=== PATIENT | female | born 1940 | race Caucasian/White ===

== ENCOUNTER 2016-09-23 13:26 | Outpatient (CLI) ==
[2015-08-31 15:57] VITALS: BMI 24.1
--- NOTE | 2016-09-24 09:21 | MAMMO ---
EXAM: Bilateral digital screening mammogram History: Screening Comparison: Bilateral mammogram 09/15/2014 Findings: MLO and CC views of bilateral breasts demonstrate scattered fibroglandular breast parench yma. Stable benign bilateral breast nodules and bilateral breast calcifications. There are no deve loping masses and no suspicious microcalcifications. Impression: Benign stable mammogram. Recommend followup routine screening mammography in 1 year. BIRADS 2
== END 2016-09-23 13:27 | disposition home or self-care (01) ==
LOC: RAD 13:26
PROVIDERS: ATTEND Internal Medicine
DX: Z12.31 Encounter for screening mammogram for malignant neoplasm of breast (principal)

== ENCOUNTER 2016-11-11 08:29 | Day surgery (SDC) ==
[2015-08-31 15:57] VITALS: BMI 24.1
[2016-11-11] MEDS ORDERED: ALBUTEROL 0.083% NEB NEB STA (09:22)
[2016-11-11] MEDS ORDERED: LIDOCAINE 1% 20 ML MDV ID ONE (09:35)
[2016-11-11] MEDS ORDERED: VERSED ONE (11:14)
[2016-11-11] MEDS ORDERED: DIPRIVAN 20 ML VIAL IVP ONE (11:14)
[2016-11-11 12:43] VITALS: BP 147/72; TEMP 97.6
--- NOTE | 2016-11-12 11:52 | OP ---
INDICATIONS FOR PROCEDURE: 76-year-old female with history of adenomatous polyps with the last colonoscopy being three years ago presents for colonoscopy exam. She had a large adenomatous carpenting polyp surgically removed from her cecum in 2005. MEDICATIONS: SEE ANESTHESIA NOTES. PROCEDURE: COLONOSCOPY. REPORT: The risks, benefits, alternatives and limitations were discussed in detail with the patient. Informed consent was obtained. After adequate sedation was achieved, a digital rectal exam revealed good tone, no masses. The colonoscope was introduced into the rectum and advanced under direct visual guidance to the cecum. The cecum was identified by the appendiceal orifice and IC valve. I then slowly withdrew the scope in a circumferential manner examining the mucosa quite carefully. I looked on the proximal and distal side of folds and flexures as best as possible. I was able to retroflex the scope in the right colon and left colon to increase visualization. The colonic mucosa was unremarkable its entire length except for moderate small mouth diverticula scattered throughout the left colon. No other abnormalities were noted including on retroflex view of the anal canal. The prep was good. The withdrawal time was 8 minutes and 16 seconds. The patient tolerated the procedure well with stable vital signs and pulse oximetry throughout. IMPRESSION: 1. DIVERTICULOSIS. RECOMMENDATIONS: 1. High fiber diet. 2. Office visit as needed. 3. Consider colon surveillance examination again in 5 years if she is clinically well; sooner if there are signs and symptoms to indicate otherwise. CC: DR. ISIS BROWNING
== END 2016-11-11 12:53 | disposition home or self-care (01) ==
LOC: SURG 08:29
PROVIDERS: ATTEND Internal Medicine Gastroenterology
DX: Z09 Encounter for follow-up examination after completed treatment for conditions other than malignant neoplasm (principal); Z86.010 Personal history of colon polyps; K57.30 Diverticulosis of large intestine without perforation or abscess without bleeding
CPT/HCPCS: 94640

== ENCOUNTER 2017-09-23 10:00 | Outpatient (CLI) ==
[2015-08-31 15:57] VITALS: BMI 24.1
--- NOTE | 2017-09-23 11:44 | MAMMO ---
EXAM: Bilateral digital screening mammogram (2-D and 3-D) History: Screening Comparison: Bilateral mammogram 09/23/2016 Findings: MLO and CC views of bilateral breasts demonstrate scattered fibroglandular breast parenchy ma. CAD was reviewed by the radiologist. Tomosynthesis was performed. Stable benign bilateral izabella st calcifications. There are no dominant masses, no suspicious microcalcifications and no architectu ral distortions. Impression: Benign stable mammogram. Recommend followup routine screening mammography in 1 year. BIRADS 2
== END 2017-09-23 10:01 | disposition home or self-care (01) ==
LOC: RAD 10:00
PROVIDERS: ATTEND Internal Medicine
DX: Z12.31 Encounter for screening mammogram for malignant neoplasm of breast (principal)
CPT/HCPCS: 77067

== ENCOUNTER 2017-10-02 07:40 | Outpatient (CLI) ==
[2015-08-31 15:57] VITALS: BMI 24.1
--- NOTE | 2017-10-02 09:19 | CT ---
EXAM: CT of the chest with contrast History: Cough, history smoking Comparison: Chest radiograph 08/31/2015 Technique: Multiplanar CT images through the thorax were obtained following administration of IV con trast Findings: Heart size is within normal limits. Great vessels are unremarkable. No pericardial effusi on. No pathologically enlarged thoracic lymph nodes. No consolidation. No pleural fluid and no pne umothorax. Mild emphysema. Faint 1.1 cm ground-glass nodule within the superior segment of the left lower lobe. Calcified granulomas are seen within the thorax. Within the visualized upper abdomen, status post cholecystectomy. Small simple left renal cyst. 1 c m benign left adrenal nodule. No acute osseous abnormalities. Impression: 1. Ground-glass nodule within the left lower lobe. Recommend follow-up chest CT in 6 months. 2. Mild emphysema.
== END 2017-10-02 07:41 | disposition home or self-care (01) ==
LOC: RAD 07:40
PROVIDERS: ATTEND Internal Medicine
DX: R05 Cough (principal); F17.210 Nicotine dependence, cigarettes, uncomplicated

== ENCOUNTER 2017-10-10 16:52 | Emergency (ER) ==
[2017-10-10 17:01] VITALS: BP 153/70; TEMP 97.4; BMI 22.6
[2017-10-10] MEDS ORDERED: NORCO 7.5-325 MG/15 ML PO STA (17:30)
[2017-10-10] MEDS ORDERED: BOOSTRIX IM ONE (17:30)
--- NOTE | 2017-10-10 17:33 | ED.PDOC ---
General ED Provider: Dr. REYMUNDO ABBSAI Chief Complaint: Foot Pain/Injury Stated Complaint: fell at home on the [place] injuring right distal foot. Has severe pain . Happned 30 min ago. Did not take home percocets. Time Seen by Physician: 17:31 Mode of Arrival: Wheelchair Information Source: Patient Primary Care Provider: NIALL MARINELLI Nursing and Triage Documentation Reviewed and Agree: Yes Does patient meet sepsis criteria?: No System Inflammatory Response Syndrome: Not Applicable Sepsis Protocol: For patient's 13 years and over: Temp is 96.8 and below OR 101 and greater Pulse >90 BPM Resp >20/minute Acutely Altered Mental Status Are patient's symptoms suggestive of a new infection, such as: -Pneumonia -Skin, Soft Tissue -Endocarditis -UTI -Bone, Joint Infection -Implantable Device -Acute Abdominal Infection -Wound Infection -Meningitis -Blood Stream Catheter Infection -Unknown Musculoskeletal Complaint Exam - Ankle/Foot Complaint/Exam Location of Injury: Reports: Right, Foot Mechanism of Injury: Reports: Trauma Onset/Duration: 30 min ago Symptoms Are: Reports: Still present Onset of Pain: Reports: Immediate Initial Severity: Severe Current Severity: Severe Location: Reports: Discrete (distal foot ) Character: Reports: Aching, Throbbing Alleviating: Reports: None Aggravating: Reports: Movement, Weight bearing, Prolonged standing Able to Bear Weight: Yes Associated Signs and Symptoms: Reports: Swelling (minimal ), Bruising Related History: Denies: Similar episode, Occupational injury Gout Risk Factors: Reports: None Related Surgical History: Reports: None Lower Extremity Findings: Present: Tenderness (distal foot ) Achilles Tendon Abnormality: No Tenderness: Present: Midfoot Differential Diagnosis: Closed Fracture, Sprain, Strain Review of Systems - Review Of Systems Constitutional: Reports: No symptoms Musculoskeletal: Reports: Joint pain All Other Systems: Reviewed and Negative Past Medical History - Past Medical History Previously Healthy: No Endocrine: Reports: None Cardiovascular: Reports: Hypertension Respiratory: Reports: None Hematological: Reports: None Gastrointestinal: Reports: GERD Genitourinary: Reports: None Neuro/Psych: Reports: Seizure, Anxiety Musculoskeletal: Reports: None Cancer: Reports: None Last Menstrual Period: NA - Surgical History General Surgical History: Reports: Hysterectomy, Cholecystectomy, Orthopedic ( Right knee), Other (Polyp removal from colon, cataract, eyelids) - Family History Family History: Reports: Unknown - Social History Smoking Status: Current every day smoker, Heavy tobacco smoker Hx Substance Use: No Alcohol Screening: None - Immunizations Tetanus Shot up to Date: No Physical Exam - Physical Exam Appearance: Well-appearing Pain Distress: Severe Respiratory: Airway patent, Breath sounds clear, Breath sounds equal, Respirations nonlabored Cardiovascular: RRR Musculoskeletal: Limited ROM Neurological: Alert, Oriented Psychiatric: Anxious Interpretation - Radiology Interpretation Radiology Interpretation By: Radiologist Radiology Results: Positive Exam Interpreted: Other (First Proximal Phalangeal fracture) Critical Care Note - Critical Care Note Total Time (mins): 0 Course - Course Orders, Labs, Meds: Orders Category Date Time Status Diphth,Pertuss(Acell),Tet Vac [Boostrix] MEDS 10/10/17 17:30 Discontinued 0.5 ml IM .ONCE ONE Hydrocodone Bit/Acetaminophen [[place] 7.5-325] MEDS 10/10/17 17:34 Discontinued 1 tab PO ONCE STA FOOT, RIGHT 3 VIEWS Stat RADS 10/10/17 17:29 Completed Medications Discontinued Medications Generic Name Dose Route Start Last Admin Trade Name Freq PRN Reason Stop Dose Admin Hydrocodone Bitart/Acetaminophen 1 tab 10/10/17 17:34 10/10/17 18:38 [place] 7.5-325 PO 10/10/17 17:35 1 tab ONCE STA Administration Diphtheria/Pertussis/Tetanus Vacc 0.5 ml 10/10/17 17:30 10/10/17 18:39 Boostrix IM 10/10/17 17:31 0.5 ml .ONCE ONE Administration Vital Signs: Temp Pulse Resp BP Pulse Ox 10/10/17 16:54 97.4 F L 71 16 153/70 H 96 Departure - Departure Time of Disposition: 19:42 Disposition: HOME SELF-CARE Discharge Problem: Fracture of phalanx of great toe Qualifiers: Encounter type: initial encounter Fracture type: closed Phalanx: proximal Fracture alignment: displaced Laterality: right Qualified Code(s): S92.411A - Displaced fracture of proximal phalanx of right great toe, initial encounter for closed fracture Instructions: Toe Fracture (ED), Tdap and Td Vaccines for Adults (ED) Condition: Stable Pt referred to PMD for follow-up: Yes IPMP verified?: No Additional Instructions: Continue home medications Follow up with PCP in 3 days for Orthopedic referral. Allergies/Adverse Reactions: Allergies ciprofloxacin [From Cipro] Adverse Reaction (Verified 08/31/15 15:58) imipramine [From Tofranil] Adverse Reaction (Verified 08/31/15 15:58) latex Adverse Reaction (Verified 08/31/15 15:58) Penicillins Adverse Reaction (Verified 08/31/15 15:58) phenytoin [From Dilantin] Adverse Reaction (Verified 08/31/15 15:58) tramadol Adverse Reaction (Verified 10/10/17 17:03) BANDAIDES Adverse Reaction (Uncoded 09/14/13 13:14) Home Medications: Ambulatory Orders Alprazolam [Xanax] 1 tab PO BID PRN 09/14/13 Amlodipine Besylate 1 tab PO BID 09/14/13 Esomeprazole Magnesium [Nexium] 1 tab PO BID 09/14/13 Phenobarbital 1 tab PO DAILY 09/14/13 Ropinirole HCl [Requip] 1 tab PO BEDTIME 09/14/13 Estrogens, Conjugated [Premarin] 0.625 mg PO BEDTIME 08/03/15 Albuterol Sulfate [Proair Hfa] 2 puff IH Q6H PRN 08/31/15 Diclofenac Sodium 75 mg PO DAILY 08/31/15 Losartan/Hydrochlorothiazide [Losartan-Hctz 100-25 mg Tab] 1 each PO DAILY 08/30 Oxycodone HCl/Acetaminophen [Percocet 7.5-325 mg Tablet] 1 each PO BID 08/31/15 Ipratropium/Albuterol Sulfate [Combivent Respimat Inhal [place]] 2 inh IH BID 04/29 Disposition Discussed With: Patient, Family
[2017-10-10] MEDS ORDERED: NORCO 7.5-325 PO STA (17:34)
--- NOTE | 2017-10-10 19:36 | DI ---
EXAM: Right foot three views HISTORY: Severe distal foot pain after trauma. FINDINGS: Bones appear demineralized. There is a mildly comminuted fracture involving the first pro ximal phalanx, distal aspect with intra-articular extension. The fractures are minimally displaced. Joints remain intact. No other acute fractures are seen. IMPRESSION: First proximal phalangeal fracture.
== END 2017-10-10 19:55 | disposition home or self-care (01) ==
LOC: ED 16:52
DX: S92.411A Displaced fracture of proximal phalanx of right great toe, initial encounter for closed fracture (principal); W19.XXXA Unspecified fall, initial encounter; F17.210 Nicotine dependence, cigarettes, uncomplicated
CPT/HCPCS: 90471; 90715; 99283

== ENCOUNTER 2017-11-16 22:16 | Emergency (ER) ==
[2017-11-16 22:16] VITALS: BMI 22.6
[2017-11-16 22:30] VITALS: BP 127/66; TEMP 96.6
[2017-11-16] MEDS ORDERED: SODIUM CHLORIDE 500 ML IV STA (23:01)
--- NOTE | 2017-11-16 23:06 | ED.PDOC ---
General ED Provider: Dr. AYO ELKINS Chief Complaint: Headache Stated Complaint: Came for the headache, she was coughing a lot on Thursday, eversince the headache got worse. not beean eating much, ALOS BEEN HURTING LEFT ARM PAIN SHOULDER PAIN, Time Seen by Physician: 22:20 Mode of Arrival: Walk-In Information Source: Patient Primary Care Provider: NIALL MARINELLI Nursing and Triage Documentation Reviewed and Agree: Yes Does patient meet sepsis criteria?: No If yes, has appropriate treatment been initiated?: No System Inflammatory Response Syndrome: Not Applicable Sepsis Protocol: For patient's 13 years and over: Temp is 96.8 and below OR 101 and greater Pulse >90 BPM Resp >20/minute Acutely Altered Mental Status Are patient's symptoms suggestive of a new infection, such as: -Pneumonia -Skin, Soft Tissue -Endocarditis -UTI -Bone, Joint Infection -Implantable Device -Acute Abdominal Infection -Wound Infection -Meningitis -Blood Stream Catheter Infection -Unknown Neurological Complaint Exam - Headache Complaint/Exam Onset: Gradual Symptoms Are: Still present Timing: Constant Worst Headache Ever: No Initial Severity: Moderate Current Severity: Moderate Location: Frontal Character: Reports: Dull, Throbbing Aggravating: Reports: None Alleviating: Reports: None Associated Signs and Symptoms: Reports: Nausea, Sinus pressure. Denies: Dizziness, Seizure, Vomiting, Fever, Neck pain, Neck stiffness, Decreased LOC, Visual changes Related History: Reports: Similar episode Related Surgical History: Reports: None SAH Risk Factors: Reports: Smoking, Hypertension Meningitis Risk Factors: Reports: None SDH Risk Factors: Reports: None Temporal Arteritis Risk Factors: Reports: None Normal Head CT Within Last 12 Months: No Sinus Tenderness: Present: None TMJ Tenderness: Present: None Meningeal Signs Positive: No Pain on Passive Flexion-Positive Kernig's: No ROM Limited In: No Limitiations Focal Weakness: Present: None Focal Sensory Loss: Present: None Gait: Normal Nystagmus Present: No Gag Reflex Present: Yes [id number]: Normal Findings Romberg Test Positive: No Babinski Sign: Negative Right, Negative Left Differential Diagnoses: Subdural Hematoma, Sinus Headache, Tension Headache Review of Systems - Review Of Systems Constitutional: Reports: Malaise, Weakness Eyes: Reports: No symptoms Ears, Nose, Mouth, Throat: Reports: No symptoms Respiratory: Reports: Cough Cardiac: Reports: No symptoms GI: Reports: No symptoms : Reports: No symptoms Musculoskeletal: Reports: Neck pain Skin: Reports: No symptoms Neurological: Reports: Headache Endocrine: Reports: No symptoms Hematologic/Lymphatic: Reports: No symptoms All Other Systems: Reviewed and Negative Past Medical History - Past Medical History Previously Healthy: No Endocrine: Reports: None Cardiovascular: Reports: Hypertension Respiratory: Reports: COPD Hematological: Reports: None Gastrointestinal: Reports: GERD Genitourinary: Reports: None Neuro/Psych: Reports: Seizure, Anxiety Musculoskeletal: Reports: None Cancer: Reports: None Last Menstrual Period: PT HAS HAD A HYSTERCTOMY - Surgical History General Surgical History: Reports: Hysterectomy, Cholecystectomy, Orthopedic ( Right knee), Other (Polyp removal from colon, cataract, eyelids) - Family History Family History: Reports: Unknown - Social History Smoking Status: Current every day smoker, Heavy tobacco smoker Smoking Cessation Counseling Time: > 10 min Hx Substance Use: No Alcohol Screening: None - Immunizations Tetanus Shot up to Date: Yes Physical Exam - Physical Exam Appearance: Ill-appearing, Thin Ill-appearing: Mild Eyes: EOMI, Conjunctiva clear ENT: Ears normal, Nose normal, Oropharynx normal Respiratory: Airway patent, Breath sounds equal, Breath sounds diminished, Respirations nonlabored, Crackles Cardiovascular: RRR, Pulses normal, No rub, No murmur GI/: Soft, Nontender, No masses, Bowel sounds normal, No Organomegaly Musculoskeletal: Normal strength, ROM intact, No edema, No calf tenderness Skin: Warm, Dry, Normal color Neurological: Sensation intact, Motor intact, Reflexes intact, Cranial nerves intact, Alert, Oriented Psychiatric: Affect appropriate, Mood appropriate Interpretation - Radiology Interpretation Radiology Interpretation By: Radiologist Radiology Results: Positive Exam Interpreted: CT Scan - EKG Interpretation Time of EKG #1: 23:05 Rate: Normal Rhythm: Sinus Ectopy: None ST Segment: Other (T WAVE INVERTION) Physician Notification - Case Discussed Time of Notification: : (dR Parra) Time of Notification: 01:09 (Dr Molina) Critical Care Note - Critical Care Note Total Time (mins): 30 Course - Course Hematology/Chemistry: 11/16/17 23:25 11/16/17 23:25 Orders, Labs, Meds: Lab Review 11/16/17 11/16/17 11/16/17 23:25 23:25 23:25 WBC 19.65 H RBC 4.02 L Hgb 13.3 Hct 37.0 MCV 92.0 MCH 33.1 H MCHC 35.9 H RDW Coeff of [place] 13.1 Plt Count 236 Immature Gran % (Auto) 0.3 Neut % (Auto) 33.2 Lymph % (Auto) 12.8 [place] % (Auto) 4.1 Eos % (Auto) 49.3 H Baso % (Auto) 0.3 Immature Gran # (Auto) 0.1 Neut # (Auto) 6.5 Lymph # (Auto) 2.5 [place] # (Auto) 0.8 Eos # (Auto) 9.7 H Baso # (Auto) 0.1 Sodium 132 L Potassium 3.3 L Chloride 96 L Carbon Dioxide 27 Anion Gap 12.3 BUN 9 Creatinine 0.92 Estimated GFR (MDRD) 59.00 BUN/Creatinine Ratio 9.78 Glucose 107 Calcium 9.1 Total Bilirubin 0.3 AST 17 ALT 13 Alkaline Phosphatase 125 Total Creatine Kinase 123 CK-MB (CK-2) 7.4 H* CK-MB (CK-2) % 6.95690 Troponin I 1.2540 H* B-Natriuretic Peptide 159 H Total Protein 6.2 Albumin 3.1 L Globulin 3.1 Albumin/Globulin Ratio 1.00 Orders Category Date Time Status ABG DRAW REQUEST Stat CARDIO 11/16/17 23:42 Ordered ABG DRAW REQUEST Stat CARDIO 11/16/17 23:42 Ordered ABG DRAW REQUEST Stat CARDIO 11/17/17 01:07 Ordered EKG-(ED ONLY) Stat CARDIO 11/16/17 23:01 Ordered EKG-(ED ONLY) Stat CARDIO 11/17/17 00:38 Ordered ED IV/MEDIPORT/POWERPORT .ONCE EMERGENCY 11/16/17 23:01 Active ABG Stat LAB 11/17/17 01:07 Received B-TYPE NATRIURETIC PEPTIDE Stat LAB 11/16/17 23:25 Completed CBC W/ AUTO DIFF Stat LAB 11/16/17 23:25 Completed COMPREHENSIVE METABOLIC PANEL Stat LAB 11/16/17 23:25 Completed CREATINE KINASE Stat LAB 11/16/17 23:25 Completed TROPONIN I Stat LAB 11/16/17 23:25 Completed UA [URINALYSIS C & S IF INDICATED] Stat LAB 11/17/17 00:47 Uncollected 0.9 % Sodium Chloride [Saline Flush] MEDS 11/16/17 23:01 Ordered 1 syr IVF PRN PRN Aspirin [Aspirin Chewable] MEDS 11/17/17 00:31 Discontinued 324 mg PO ONCE STA Morphine Sulfate [Morphine 2 mg/ml Syringe] MEDS 11/17/17 00:31 Discontinued 2 mg IVP ONCE STA Ondansetron HCl/Pf [Zofran 4 mg/2 ml] MEDS 11/17/17 00:31 Discontinued 4 mg IVP ONCE STA Sodium Chloride 0.9% [Sodium Chloride] 500 ml MEDS 11/16/17 23:01 Active IV 100 mls/hr CT CHEST W/O CONTRAST Stat RADS 11/16/17 23:[address] HEAD W/O CONTRAST Stat RADS 11/16/17 23:02 Completed Medications Generic Name Dose Route Start Last Admin Trade Name Freq PRN Reason Stop Dose Admin Sodium Chloride 500 mls @ 100 mls/hr 11/16/17 23:01 11/17/17 00:54 Sodium Chloride IV 11/17/17 04:00 100 mls/hr .Q5H STA Administration Sodium Chloride 1 syr 11/16/17 23:01 Saline Flush IVF PRN PRN To flush IV Discontinued Medications Generic Name Dose Route Start Last Admin Trade Name Freq PRN Reason Stop Dose Admin Aspirin 324 mg 11/17/17 00:31 11/17/17 00:49 Aspirin Chewable PO 11/17/17 00:32 324 mg ONCE STA Administration Morphine Sulfate 2 mg 11/17/17 00:31 11/17/17 00:49 Morphine 2 Mg/Ml Syringe IVP 11/17/17 00:32 2 mg ONCE STA Administration Ondansetron HCl 4 mg 11/17/17 00:31 11/17/17 00:53 Zofran 4 Mg/2 Ml IVP 11/17/17 00:32 4 mg ONCE STA Administration Vital Signs: Temp Pulse Resp BP Pulse Ox 11/16/17 22:16 96.6 F L 86 20 127/66 91 L Departure - Departure Time of Disposition: 00:33 Disposition: HOME SELF-CARE Discharge Problem: Elevated troponin, Angina at rest Instructions: Angina (DC) Condition: Stable Pt referred to PMD for follow-up: No IPMP verified?: No Allergies/Adverse Reactions: Allergies ciprofloxacin [From Cipro] Adverse Reaction (Verified 11/16/17 22:31) imipramine [From Tofranil] Adverse Reaction (Verified 11/16/17 22:31) latex Adverse Reaction (Verified 11/16/17 22:31) Penicillins Adverse Reaction (Verified 11/16/17 22:31) phenytoin [From Dilantin] Adverse Reaction (Verified 11/16/17 22:31) tramadol Adverse Reaction (Verified 11/16/17 22:31) BANDAIDES Adverse Reaction (Uncoded 11/16/17 22:31) Home Medications: Ambulatory Orders Amlodipine Besylate 1 tab PO BID 09/14/13 Esomeprazole Magnesium [Nexium] 1 tab PO BID 09/14/13 Ropinirole HCl [Requip] 1 tab PO BEDTIME 09/14/13 Estrogens, Conjugated [Premarin] 0.625 mg PO BEDTIME 08/03/15 Albuterol Sulfate [Proair Hfa] 2 puff IH Q6H PRN 08/31/15 Diclofenac Sodium 75 mg PO DAILY 08/31/15 Losartan/Hydrochlorothiazide [Losartan-Hctz 100-25 mg Tab] 1 each PO DAILY 08/30 Oxycodone HCl/Acetaminophen [Percocet 7.5-325 mg Tablet] 1 each PO BID 08/31/15 Ipratropium/Albuterol Sulfate [Combivent Respimat Inhal [place]] 2 inh IH BID 04/29 Alprazolam [Xanax] 2 tab PO BEDTIME 11/16/17 Phenobarbital 100 mg PO BEDTIME 11/16/17 Transfer Form Completed: Yes Disposition Discussed With: Patient, Family
--- NOTE | 2017-11-16 23:32 | CT ---
EXAM: CT scan brain without contrast HISTORY: Headache COMPARISON: CT scan brain 08/31/2015 FINDINGS: Contiguous axial images obtained from the skull base to the convexities without contrast u tilizing 5-mm collimation. Sagittal and coronal reconstructions were imaged and reviewed. The ventri cles and CSF spaces are prominent compatible with age appropriate atrophy. There is mild periventric ular hypodensity noted compatible with chronic microvascular disease. Atherosclerotic changes are se en involving the left vertebral and bilateral cavernous internal carotid arteries. Visualized parana ridge sinuses and mastoid air cells are clear. IMPRESSION: No acute intracranial findings
--- NOTE | 2017-11-16 23:38 | CT ---
EXAM: CT chest without intravenous contrast 11/16/2017. Sagittal and coronal reformatted images obt ained HISTORY: Cough COMPARISON: 10/02/2017 FINDINGS: The heart size appears within normal limits. There is no pericardial effusion. Emphysematous changes. Diffuse bronchial wall thickening. Correlate for bronchitis/bronchiolitis. Ground-glass density within the medial aspect of the left lower lobe can be seen on image 31. This a stefani measures approximate 11 mm in diameter. This appears similar to the prior study. Follow-up CT c hest could be obtained approximately six - 12 months. Limited views of the upper abdomen shows surgical changes of cholecystectomy. Benign left adrenal jj noma. Chronic degenerative endplate changes of the thoracic spine appear similar to the prior examination. IMPRESSION: 1. Emphysema. 2. Stable ground-glass density within the left lower lobe. Follow-up CT chest could be obtained in approximately six - 12 months. 3. Diffuse bronchial wall thickening. Correlate for bronchitis/bronchiolitis. 4. Status post cholecystectomy. 5. Benign left adrenal adenoma. 6. Chronic degenerative endplate changes of the thoracic spine appears similar to the prior examinat ion.
[2017-11-17] MEDS ORDERED: MORPHINE 2 MG/ML SYRINGE IVP STA (00:31)
[2017-11-17] MEDS ORDERED: ZOFRAN 4 MG/2 ML IVP STA (00:31)
[2017-11-17] MEDS ORDERED: ASPIRIN CHEWABLE PO STA (00:31)
== END 2017-11-17 01:40 | disposition home or self-care (01) ==
LOC: ED 22:16
DX: R51 Headache (principal); M79.602 Pain in left arm; M25.512 Pain in left shoulder; R11.0 Nausea; R53.1 Weakness; I10 Essential (primary) hypertension; J44.9 Chronic obstructive pulmonary disease, unspecified; K21.9 Gastro-esophageal reflux disease without esophagitis; F41.9 Anxiety disorder, unspecified
CPT/HCPCS: 36415; 80053; 82550; 82553; 82803; 82962; 83880; 84484; 85025; 93005; 93010; 96361; 96374; 96375; 99285

== ENCOUNTER 2017-12-25 14:53 | Inpatient (IN) ==
--- NOTE | 2017-12-25 16:09 | DI ---
EXAM: Single AP view of the chest HISTORY: Chest pain. COMPARISON: Chest x-ray 08/31/2015 FINDINGS: Cardiomediastinal silhouette is unremarkable. There is consolidation in the medial left lo wer lobe. The lungs are otherwise clear. Lungs are hyperinflated with no pneumothorax. The osseous structures demonstrate degenerative disease. IMPRESSION: Consolidation in the medial left lower lobe may represent atelectasis or pneumonia. Hyperinflation consistent with emphysema.
--- NOTE | 2017-12-25 16:50 | ED.PDOC ---
General ED Provider: Dr. ROD BARRERA Chief Complaint: Extremity Pain/Injury Stated Complaint: LEFT ARM TINGLING, WEAKNESS WHICH IS PROGRESSIVE OVER MONTHS SLIGHLY WORSE Time Seen by Physician: 15:00 (SEEN WITH NKECHI'S NURSE ) Mode of Arrival: Wheelchair Information Source: Patient, Family Exam Limitations: No limitations Primary Care Provider: NIALL MARINELLI Nursing and Triage Documentation Reviewed and Agree: Yes Does patient meet sepsis criteria?: No System Inflammatory Response Syndrome: Not Applicable Sepsis Protocol: For patient's 13 years and over: Temp is 96.8 and below OR 101 and greater Pulse >90 BPM Resp >20/minute Acutely Altered Mental Status Are patient's symptoms suggestive of a new infection, such as: -Pneumonia -Skin, Soft Tissue -Endocarditis -UTI -Bone, Joint Infection -Implantable Device -Acute Abdominal Infection -Wound Infection -Meningitis -Blood Stream Catheter Infection -Unknown Musculoskeletal Complaint Exam - Upper Extremity Complaint/Exam Location of Pain: Reports: Left, Shoulder, Arm, Forearm Mechanism of Injury: Reports: No known trauma Onset/Duration: CHRONIC WORSE X 1 WEEK DROPPING THINGS MORE FREQUENTLY Symptoms Are: Still present Timing: Constant Episodes Lasting: Weeks Initial Severity: Moderate Current Severity: Mild Location: Reports: Discrete Character: Reports: Aching Aggravating: Reports: Movement Alleviating: Reports: Rest Related History: Reports: Similar episode Non-Orthopedic Risk Factors: Reports: None DVT Risk Factors: Reports: None Septic Arthritis Risk Factors: Reports: Extremes of age Upper Extremity Findings: Absent: Swelling, Ecchymosis, Abnormal contour, Rotation, Ligamentous instability, Laceration, Erythema, Warmth Differential Diagnoses: Arthritis (RADICULOPATHY), Other (ANGINA) Review of Systems - Review Of Systems Constitutional: Reports: No symptoms Eyes: Reports: No symptoms Ears, Nose, Mouth, Throat: Reports: No symptoms Respiratory: Reports: No symptoms Cardiac: Reports: No symptoms GI: Reports: No symptoms : Reports: No symptoms Musculoskeletal: Reports: Other (ARM PAIN AND WEAKNESS LEFT SIDED ) Skin: Reports: No symptoms Neurological: Reports: No symptoms Endocrine: Reports: No symptoms Hematologic/Lymphatic: Reports: No symptoms All Other Systems: Reviewed and Negative Past Medical History - Past Medical History Previously Healthy: No Endocrine: Reports: None Cardiovascular: Reports: Hypertension Respiratory: Reports: COPD Hematological: Reports: None Gastrointestinal: Reports: GERD Genitourinary: Reports: None Neuro/Psych: Reports: Seizure, Anxiety Musculoskeletal: Reports: None Cancer: Reports: None Last Menstrual Period: NONE - Surgical History General Surgical History: Reports: Hysterectomy, Cholecystectomy, Orthopedic ( Right knee), Other (Polyp removal from colon, cataract, eyelids) - Family History Family History: Reports: Unknown - Social History Smoking Status: Current every day smoker, Heavy tobacco smoker Hx Substance Use: No Alcohol Screening: None Physical Exam - Physical Exam Appearance: Well-appearing, No pain distress, Well-nourished Eyes: YASH, EOMI, Conjunctiva clear ENT: Ears normal, Nose normal, Oropharynx normal Respiratory: Airway patent, Breath sounds clear, Breath sounds equal, Respirations nonlabored Cardiovascular: RRR, Pulses normal, No rub, No murmur GI/: Soft, Nontender, No masses, Bowel sounds normal, No Organomegaly Musculoskeletal: Normal strength, ROM intact, No edema, No calf tenderness Skin: Warm, Dry, Normal color Neurological: Sensation intact, Motor intact, Reflexes intact, Cranial nerves intact, Alert, Oriented Psychiatric: Affect appropriate, Mood appropriate Interpretation - Radiology Interpretation Radiology Interpretation By: Radiologist Radiology Results: Positive (CONSOLIDATION RML POSSIBLE ATLELECTASIS) - City Plant Supervisor Rate: Normal Rhythm: Sinus - EKG Interpretation Rate: Normal Rhythm: Sinus (RBBB) Re-Evaluation - Re-Evaluation Time of Re-Evaluation: 16:00 (NEGATIVE CHEST PAIN) Status: Unchanged Vital Signs Stable: Yes Pain Level: 0 Appearance: NAD Lungs: Clear Skin: Warm and Dry Neuro: Alert and Oriented X3 CV: RRR - Re-Evaluation Time of Re-Evaluation: 16:51 Status: Unchanged Vital Signs Stable: Yes Appearance: NAD Skin: Warm and Dry Neuro: Alert and Oriented X3 CV: RRR (NO CHEST PAIN) Physician Notification - Case Discussed Physician Notified: PMD Time of Notification: 16:51 (ADMITT) Admit To: Inpatient Critical Care Note - Critical Care Note Total Time (mins): 0 Course - Course Hematology/Chemistry: 12/25/17 15:15 12/25/17 15:15 Orders, Labs, Meds: Lab Review 12/25/17 12/25/17 15:15 15:15 WBC 9.68 RBC 3.82 L Hgb 12.8 Hct 35.6 L MCV 93.2 MCH 33.5 H MCHC 36.0 H RDW Coeff of Dayana 13.0 Plt Count 274 Immature Gran % (Auto) 0.3 Neut % (Auto) 69.0 Lymph % (Auto) 13.0 [place] % (Auto) 4.3 Eos % (Auto) 13.2 H Baso % (Auto) 0.2 Immature Gran # (Auto) 0.0 Neut # (Auto) 6.7 Lymph # (Auto) 1.3 [place] # (Auto) 0.4 Eos # (Auto) 1.3 H Baso # (Auto) 0.0 Sodium 129.7 L Potassium 3.89 Chloride 95.2 L Carbon Dioxide 26.0 Anion Gap 12.39 BUN 21.7 H Creatinine 1.12 Estimated GFR (MDRD) 47.00 BUN/Creatinine Ratio 19.37 Glucose 127.8 H Calcium 9.40 Total Bilirubin 0.26 AST 30.1 ALT 16.4 Alkaline Phosphatase 139.8 Total Creatine Kinase 57.8 Troponin I 1.760 H* Total Protein 7.26 Albumin 4.07 Globulin 3.19 Albumin/Globulin Ratio 1.27 Orders Category Date Time Status EKG-(ED ONLY) Stat CARDIO 12/25/17 15:15 Completed EKG-(ED ONLY) Stat CARDIO 12/25/17 16:22 Ordered CBC W/ AUTO DIFF Stat LAB 12/25/17 15:15 Completed COMPREHENSIVE METABOLIC PANEL Stat LAB 12/25/17 15:15 Completed CREATINE KINASE Stat LAB 12/25/17 15:15 Completed TROPONIN I Stat LAB 12/25/17 15:15 Completed CHEST, 1V AP ONLY Stat RADS 12/25/17 15:25 Completed Vital Signs: Temp Pulse Resp BP Pulse Ox 12/25/17 14:57 98.3 F 89 20 150/71 H 87 L Departure - Departure Time of Disposition: 16:52 Disposition: ADMITTED INPATIENT Discharge Problem: Stable angina pectoris Arm pain, chronic Qualifiers: Laterality: right Qualified Code(s): M79.601 - Pain in right arm; G89.29 - Other chronic pain Instructions: Angina (ED) Condition: Good Pt referred to PMD for follow-up: Yes IPMP verified?: No Allergies/Adverse Reactions: Allergies ciprofloxacin [From Cipro] Adverse Reaction (Verified 12/25/17 15:02) imipramine [From Tofranil] Adverse Reaction (Verified 12/25/17 15:02) latex Adverse Reaction (Verified 12/25/17 15:02) Penicillins Adverse Reaction (Verified 12/25/17 15:02) phenytoin [From Dilantin] Adverse Reaction (Verified 12/25/17 15:02) tramadol Adverse Reaction (Verified 12/25/17 15:02) BANDAIDES Adverse Reaction (Uncoded 11/16/17 22:31) Home Medications: Ambulatory Orders Amlodipine Besylate 1 tab PO BID 09/14/13 Esomeprazole Magnesium [Nexium] 1 tab PO BID 09/14/13 Ropinirole HCl [Requip] 1 tab PO BEDTIME 09/14/13 Estrogens, Conjugated [Premarin] 0.625 mg PO BEDTIME 08/03/15 Albuterol Sulfate [Proair Hfa] 2 puff IH Q6H PRN 08/31/15 Diclofenac Sodium 75 mg PO DAILY 08/31/15 Losartan/Hydrochlorothiazide [Losartan-Hctz 100-25 mg Tab] 1 each PO DAILY 08/30 Oxycodone HCl/Acetaminophen [Percocet 7.5-325 mg Tablet] 1 each PO BID 08/31/15 Alprazolam [Xanax] 2 tab PO BEDTIME 11/16/17 Phenobarbital 100 mg PO BEDTIME 11/16/17 Disposition Discussed With: Patient, Family
[2017-12-25] MEDS ORDERED: ROCEPHIN 1 GM in SODIUM CHLORIDE 50 ML IV STA (17:08)
[2017-12-25] MEDS ORDERED: ROCEPHIN ONE (17:11)
[2017-12-25] MEDS: ROCEPHIN 1 GM in SODIUM CHLORIDE 50 ML IV SCH (17:51)
[2017-12-25] MEDS: SODIUM CHLORIDE 1,000 ML IV SCH (18:34)
[2017-12-25] MEDS: DUONEB NEB SCH ×2 (18:37→23:50)
[2017-12-25 18:57] VITALS: BMI 22.0
--- NOTE | 2017-12-25 18:58 | CT ---
EXAM: CT of the head with contrast. HISTORY: Numbness. COMPARISON: 11/16/[address] TECHNIQUE: Contiguous axial images at 5 mm intervals were obtained from the base of the skull to the vertex of the calvarium. The study was performed after IV contrast. No precontrast images were obt ained. FINDINGS: Evaluation and exclusion of subarachnoid blood is limited due to the presence of contrast. The CSF containing spaces are normal in size and position. There are no extraaxial fluid collections . There is no evidence of an acute intracranial hemorrhage. There are no masses or mass effect. No areas of abnormal density are identified. Romero-white differentiation is normal. The osseous and extracranial soft tissues are normal. IMPRESSION: 1. No acute intracranial abnormality. 2. Limited study for evaluation of intracranial hemorrhage due to the presence of IV contrast.
--- NOTE | 2017-12-25 19:04 | CT ---
EXAM: CT cervical spine without contrast HISTORY: Neck pain and numbness COMPARISON: None TECHNIQUE: CT cervical spine performed without intravenous contrast. Coronal and sagittal reformatt ed images obtained. FINDINGS: Vertebral bodies normal height. No fracture. No subluxation. Multilevel marginal osteophy te formation. Multilevel intervertebral disc space narrowing, severe at C6-C7. Multilevel facet and uncovertebral hypertrophy. Prevertebral soft tissues appear normal. C2-C3: No central canal or neural foraminal narrowing. C3-C4: Posterior disc osteophyte complex and facet arthrosis causing mild central canal and moderate left neural foraminal narrowing. C4-C5: No central canal or neural foraminal narrowing. C5-C6: Posterior disc osteophyte complex and facet arthrosis causing mild central canal, moderate rig ht and mild left neural foraminal narrowing. C6-C7: Posterior disc osteophyte complex and facet arthrosis causing mild to moderate central canal and moderate bilateral neural foraminal narrowing. C7-T1: No central canal or neural foraminal narrowing IMPRESSION: 1. No fracture or subluxation. 2. Chronic discogenic degenerative disease and facet arthrosis. Please see segmental analysis, noti ng central canal and neural foraminal narrowing.
[2017-12-25] MEDS ORDERED: ESOMEPRAZOLE MAGNESIUM PO SCH (21:00)
[2017-12-25] MEDS ORDERED: XANAX PO SCH (21:00)
[2017-12-25] MEDS ORDERED: PHENOBARBITAL 100 MG PO SCH (21:00)
[2017-12-25] MEDS ORDERED: NORVASC PO SCH ×2 (21:00)
[2017-12-25] MEDS ORDERED: PERCOCET 7.5-325 PO SCH (21:00)
[2017-12-25] MEDS ORDERED: XANAX ONE (21:15)
[2017-12-25] MEDS ORDERED: NORVASC ONE ×2 (21:15→21:17)
[2017-12-25] MEDS: REQUIP PO SCH (21:21)
[2017-12-25] MEDS ORDERED: PERCOCET 7.5-325 ONE (21:47)
[2017-12-25] MEDS: PERCOCET 7.5-325 PO SCH (21:51)
[2017-12-25] MEDS: PREMARIN PO SCH (22:58)
[2017-12-26] MEDS: DUONEB NEB SCH ×4 (05:10→23:44)
[2017-12-26] MEDS ORDERED: PERCOCET 7.5-325 ONE (05:19)
[2017-12-26] MEDS: PERCOCET 7.5-325 PO SCH ×3 (05:21→20:00)
[2017-12-26] MEDS ORDERED: DICLOFENAC SODIUM PO SCH (08:00)
[2017-12-26] MEDS ORDERED: PERCOCET 7.5-325 PO SCH ×2 (09:00→21:00)
[2017-12-26] MEDS ORDERED: NON-FORMULARY MEDICATION (Losartan/Hydrochlorothiazide [Losartan-Hctz 100-25 Mg Tab] 1 EAC PO SCH (09:00)
[2017-12-26] MEDS: SODIUM CHLORIDE 1,000 ML IV SCH ×2 (09:04→22:30)
[2017-12-26] MEDS: ROCEPHIN 1 GM in SODIUM CHLORIDE 50 ML IV SCH (09:18)
[2017-12-26] MEDS: PROTONIX PO SCH ×2 (09:19→16:09)
[2017-12-26] MEDS: HYZAAR 50-12.5 MG TAB PO SCH (09:19)
[2017-12-26] MEDS: NORVASC PO SCH ×2 (09:20→20:00)
[2017-12-26] MEDS ORDERED: DECADRON 4 MG/ML SDV IM STA (09:58)
[2017-12-26] MEDS: LEXAPRO PO SCH (10:13)
[2017-12-26] MEDS: LOVENOX SUBCUT SCH (10:13)
[2017-12-26] MEDS ORDERED: REQUIP PO STA (15:43)
[2017-12-26] MEDS: PREMARIN PO SCH (20:00)
[2017-12-26] MEDS: REQUIP PO SCH (20:00)
[2017-12-26] MEDS: PHENOBARBITAL 100 MG PO SCH (20:01)
[2017-12-26] MEDS: XANAX PO SCH (20:01)
[2017-12-27] MEDS: DUONEB NEB SCH ×4 (05:20→23:30)
[2017-12-27] MEDS: PROTONIX PO SCH ×2 (05:53→17:08)
[2017-12-27] MEDS: ROCEPHIN 1 GM in SODIUM CHLORIDE 50 ML IV SCH (08:46)
[2017-12-27] MEDS: LEXAPRO PO SCH (08:46)
[2017-12-27] MEDS: HYZAAR 50-12.5 MG TAB PO SCH (08:46)
[2017-12-27] MEDS: NORVASC PO SCH ×2 (08:47→20:40)
[2017-12-27] MEDS: PERCOCET 7.5-325 PO SCH ×2 (08:47→20:41)
[2017-12-27] MEDS: LOVENOX SUBCUT SCH (08:48)
[2017-12-27] MEDS ORDERED: DECADRON 4 MG/ML SDV IM ONE (09:00)
[2017-12-27] MEDS: SODIUM CHLORIDE 1,000 ML IV SCH (14:09)
[2017-12-27] MEDS: PREMARIN PO SCH (20:40)
[2017-12-27] MEDS: REQUIP PO SCH (20:40)
[2017-12-27] MEDS: PHENOBARBITAL 100 MG PO SCH (20:40)
[2017-12-27] MEDS: XANAX PO SCH (20:41)
[2017-12-28] MEDS: SODIUM CHLORIDE 1,000 ML IV SCH (04:10)
[2017-12-28] MEDS: DUONEB NEB SCH ×3 (04:30→17:58)
[2017-12-28] MEDS: PROTONIX PO SCH ×2 (05:48→16:57)
[2017-12-28] MEDS: LEXAPRO PO SCH (09:08)
[2017-12-28] MEDS: HYZAAR 50-12.5 MG TAB PO SCH (09:09)
[2017-12-28] MEDS: NORVASC PO SCH ×2 (09:09→20:48)
[2017-12-28] MEDS: PERCOCET 7.5-325 PO SCH ×2 (09:10→20:48)
[2017-12-28] MEDS: ROCEPHIN 1 GM in SODIUM CHLORIDE 50 ML IV SCH (09:12)
[2017-12-28] MEDS: LOVENOX SUBCUT SCH (09:14)
[2017-12-28] MEDS ORDERED: LEXAPRO PO ONE (09:30)
--- NOTE | 2017-12-28 09:31 | PCM.PROG ---
Attending Provider: ATTENDING PROVIDER: Dr. NIALL MARINELLI This patient is seen with Dulce Suarez, Nurse Practitioner. DATE OF SERVICE: 12/28/17 SUBJECTIVE: This 77 year old WHITE/ F was hospitalized 12/25/17. The patient is sitting on bed. She still needs assistance. She has been up and about, experiences leg weakness and short of breath. Will do PT consultation today. REVIEW OF SYSTEMS: CONSTITUTIONAL: Weakness. No night sweats. No malaise, lethargy. No fever or chills. HEENT: Eyes: No visual changes. No eye pain. No eye discharge. ENT: No runny nose. No epistaxis. No sinus pain. No odynophagia. No congestion. RESPIRATORY: No cough, no congestion. No hemoptysis. Shortness of breath. CARDIOVASCULAR: No angina symptoms. No CHF symptoms. No atypical chest pain for CAD. No palpitations. No orthopnea.. GASTROINTESTINAL: No abdominal pain. No nausea or vomiting. No diarrhea or constipation. No hematemesis. No hematochezia. GENITOURINARY: No urgency. No frequency. No dysuria. No hematuria. No obstructive symptoms. No discharge. No pain. No significant abnormal bleeding. MUSCULOSKELETAL: No musculoskeletal pain; no joint swelling. NEUROLOGICAL: Awake, alert, oriented to time, place and person. No headache. No neck pain. No syncope. No seizures. No dizziness. PSYCHIATRIC: Anxious. No depression. No suicidal thoughts. No homicidal thoughts. SKIN: No rash. No lesions. No wounds. ENDOCRINE: No unexplained weight loss. No weight gain. HEMATOLOGIC/LYMPHATIC: No anemia. No purpura. No petechiae. No prolonged or excessive bleeding. No palpable lymph nodes. PHYSICAL EXAMINATION: GENERAL: The patient is awake, alert and oriented, lying/sitting in bed in no distress. VITAL SIGNS: Temperature 97.4 F, Pulse 80, Respiratory Rate 24, BP 164/68, Pulse Ox 92% HEENT: Head normocephalic, atraumatic. Eyes: Extraocular muscles are intact. Pupils are equal, round and reactive to light and accommodation. Ears: No lesions. Nose appeared normal. Throat: No exudate or erythema. NECK: Supple. No JVD, no carotid bruit. No lymphadenopathy or thyromegaly. LUNGS: Diminished breath sounds, wheezing bilaterally with crackles on the left. Percussion note normal. Chest symmetrical. HEART: S1, S2, no S3. No murmurs. No cyanosis or clubbing. No ascites. Pulses: Dorsalis pedis and posterior tibial pulses +1 to +2 both sides. ABDOMEN: Soft. Non-tender. Bowel sounds active. No CVA tenderness. No mass felt. EXTREMITIES: No edema. Full range of motion of all extremities, equal. NEUROLOGIC: No focal deficit. Cranial nerves II through XII are grossly intact. No headache, no double vision or headache. SKIN: Not dry. Intact. Turgor-normal. LYMPHATIC: No palpable lymph nodes/no lymphedema. MUSCULOSKELETAL: Normal joints with no swelling. Muscle tone is normal. LAB REVIEW: 12/28/17 04:44 12/28/17 04:44 12/28/17 04:44: Sodium 134.7 L, Potassium 3.29 L, Chloride 104.6, Carbon Dioxide 25.8, Anion Gap 7.59, BUN 17.8 H, Creatinine 0.89, Estimated GFR (MDRD) 62.00, BUN/Creatinine Ratio 20.00, Glucose 88.1, Calcium 8.85, Total Bilirubin 0.15 L, AST 17.3, ALT 20.9, Alkaline Phosphatase 103.5, Total Protein 6.00 L, Albumin 3.22 L, Globulin 2.78, Albumin/Globulin Ratio 1.15 12/28/17 04:44: WBC 8.31, RBC 3.22 L, Hgb 10.6 L, Hct 31.2 L, MCV 96.9, MCH 32.9 H, MCHC 34.0, RDW Coeff of Dayana 13.0, Plt Count 266, Immature Gran % (Auto) 0.4, Neut % (Auto) 48.4, Lymph % (Auto) 33.5, [place] % (Auto) 7.8, Eos % (Auto) 9.3 H, Baso % (Auto) 0.6, Immature Gran # (Auto) 0.0, Neut # (Auto) 4.0, Lymph # (Auto) 2.8, [place] # (Auto) 0.7, Eos # (Auto) 0.8 H, Baso # (Auto) 0.1 ASSESSMENT: 1. LEFT LOWER LOBE PNEUMONIA 2. SEVERE COPD 3. HEAVY SMOKER 4. CHRONIC BACK PAIN 5. LEG WEAKNESS 6. ANXIETY 7. HISTORY OF SEIZURE DISORDER 8. HYPERTENSION PLAN: 1. Increase Lexapro 20 mg 2. PT evaluation 3. Solu-Cortef 100 mg IV q.12h 4. Potassium 40 b.i.d. today only 5. Nicotine patch 6. Colace mg 100 b.i.d. Plan and coordination of the patient's care discussed in the presence of Licensed Practical Nurse Instructor and nurse. CONDITION: Stable SCRIBED BY: EMMA DELGADO Appliance Repair Technician scribed while in presence of service performed by Dr. Marinelli/Dulce Suarez APRN on 12/28/17 ([id number])
[2017-12-28] MEDS: K-DUR PO SCH ×2 (10:26→16:57)
[2017-12-28] MEDS: COLACE PO SCH ×2 (10:26→20:48)
[2017-12-28] MEDS: NICODERM 21 MG TD SCH (10:28)
[2017-12-28] MEDS: SOLU-CORTEF 100 MG IVP SCH ×2 (10:31→20:48)
--- NOTE | 2017-12-28 11:19 | PN ---
DATE OF SERVICE: 12/25/17 (ADMIT NOTE) SUBJECTIVE: 77-year-old white female hospitalized with chest pain which was fairly atypical , sharp, mostly on coughing. The patient also has possibility of pneumonia with bronchitis. She is a heavy smoker. She is being treated for bronchitis off and on for the past six to eight months at least five to six times, steroids and antibiotics. Conditions and lung condition have been deteriorating. She also has seizure disorder. PHYSICAL EXAMINATION: HEENT: Head normocephalic, atraumatic. Eyes: Extraocular muscles are intact. Pupils are equal, round and reactive to light and accommodation. Ears: No lesions. Nose appeared normal. Throat: No exudate or erythema. NECK: Supple. No JVD, no carotid bruit. No lymphadenopathy or thyromegaly. LUNGS: Decreased breath sounds with mild wheeze. Percussion note normal. Chest symmetrical. HEART: S1, S2, no S3. No murmurs. No cyanosis or clubbing. No ascites. Pulses: Dorsalis pedis and posterior tibial pulses +1 to +2 both sides. ABDOMEN: Soft. Nontender. Bowel sounds active. No CVA tenderness. No mass felt. EXTREMITIES: No edema. Full range of motion of all extremities, equal. NEUROLOGIC: No focal deficit. Cranial nerves II through XII are grossly intact. No headache, no double vision or headache. SKIN: Not dry. Intact. Turgor - normal. LYMPHATIC: No palpable lymph nodes/no lymphedema. MUSCULOSKELETAL: Normal joints with no swelling. Muscle tone is normal. EKG showed sinus rhythm, RBBB type of pattern, unchanged. Troponin was high but CK-MB was negative. ASSESSMENT: 1. ACUTE BRONCHITIS 2. PLEURITIC TYPE OF PAIN 3. DYSLIPIDEMIA 4. SMOKER 5. CHRONIC LUNG DISEASE PLAN: 1. Telemetry 2. Cardiac markers 3. Steroids 4. Nebs treatment 5. Antibiotics The patient has a lot of pain likely from DJD of the spine and osteoporosis. Advised to cut down on narcotics. CONDITION: Stable TIME SPENT: More than 30 minutes. Plan and coordination of the patient's care discussed in the presence of nurse. MTDD
--- NOTE | 2017-12-28 11:29 | PN ---
DATE OF SERVICE: 12/26/17 SUBJECTIVE: 77-year-old white female was hospitalized with acute bronchitis, chronic lung disease. The patient has chest pain which is atypical, mostly pleuritic type, mostly on cough. Also had cervical radiculopathy type of symptoms with pain. This morning the patient is drowsy, breathing shallow and has oxygen saturation of 91% on room air. ABG done today showed p02 of 54, pc02 39, oxygen saturation of 89%. The patient has been on 2 to 3L. The patient does not retain c02. REVIEW OF SYSTEMS: CONSTITUTIONAL: No night sweats. No fatigue, malaise, lethargy. No fever or chills. HEENT: Eyes: No visual changes. No eye pain. No eye discharge. ENT: No runny nose. No epistaxis. No sinus pain. No sore throat. No odynophagia. No congestion. RESPIRATORY: No cough, no congestion. No hemoptysis. No shortness of breath. CARDIOVASCULAR: No angina symptoms. No CHF symptoms. No atypical chest pain for CAD. No palpitations. No orthopnea. GASTROINTESTINAL: Appetite is not that good lately. No abdominal pain. No nausea or vomiting. No diarrhea or constipation. No hematemesis. No hematochezia. GENITOURINARY: No urgency. No frequency. No dysuria. No hematuria. No obstructive symptoms. No discharge. No pain. No significant abnormal bleeding. MUSCULOSKELETAL: No musculoskeletal pain; no joint swelling. NEUROLOGICAL: Drowsiness. No headache. No neck pain. No syncope. No seizures. No dizziness. PSYCHIATRIC: Not anxious. No depression. No suicidal thoughts. No homicidal thoughts. SKIN: No rash. No lesions. No wounds. ENDOCRINE: No unexplained weight loss. No weight gain. HEMATOLOGIC/LYMPHATIC: No anemia. No purpura. No petechiae. No prolonged or excessive bleeding. No palpable lymph nodes. PHYSICAL EXAMINATION: HEENT: Head normocephalic, atraumatic. Eyes: Extraocular muscles are intact. Pupils are equal, round and reactive to light and accommodation. Ears: No lesions. Nose appeared normal. Throat: No exudate or erythema. NECK: Supple. No JVD, no carotid bruit. No lymphadenopathy or thyromegaly. LUNGS: Decreased breath sounds but clear to auscultation. Percussion note normal. Chest symmetrical. HEART: S1, S2, no S3. No murmurs. No cyanosis or clubbing. No ascites. Pulses: Dorsalis pedis and posterior tibial pulses +1 to +2 both sides. ABDOMEN: Soft. Nontender. Bowel sounds active. No CVA tenderness. No mass felt. EXTREMITIES: No leg edema. Full range of motion of all extremities, equal. NEUROLOGIC: No focal deficit. Cranial nerves II through XII are grossly intact. No headache, no double vision or headache. SKIN: Not dry. Intact. Turgor - normal. LYMPHATIC: No palpable lymph nodes/no lymphedema. MUSCULOSKELETAL: Normal joints with no swelling. Muscle tone is normal. LABS: EKG sinus rhythm, RBBB type of pattern. Troponin elevated but CK-MB negative. Total CK is normal. ASSESSMENT: 1. ACUTE BRONCHITIS WITH CHRONIC LUNG DISEASE 2. RESPIRATORY FAILURE FROM CHRONIC LUNG DISEASE AND ACUTE BRONCHITIS PLAN: 1. Continue antibiotics, steroids 2. Counseling for smoking done 3. The patient's daughter is in the room and she had question regarding her status and explained to her the main problem she has is chronic lung disease and narcotic she takes with Xanax is why she is hypoventilating at the present time. Will make Hydrocodone to b.i.d. 4. 1 cc Decadron now and 1 cc Decadron in the morning. 5. Saturation at the present time is 90% on room air. Addendum: The patient is feeling down, somewhat depressed according to the daughter, Cathy. We will start Lexapro 10 mg p.o. now and 10 mg p.o. q.a.m. Also Lovenox to be used 40 mg subQ daily. The patient needs to be up and about. The patient needs lifestyle changes that were discussed with the daughter. CONDITION: Stable. TIME SPENT: More than 30 minutes. Plan and coordination of the patient's care discussed in the presence of nurse. NALLELY
--- NOTE | 2017-12-28 11:33 | PN ---
DATE OF SERVICE: 12/27/17 SUBJECTIVE: The patient is a lot better, awake, talking normally. REVIEW OF SYSTEMS: CONSTITUTIONAL: No night sweats. No fatigue, malaise, lethargy. No fever or chills. HEENT: Eyes: No visual changes. No eye pain. No eye discharge. ENT: No runny nose. No epistaxis. No sinus pain. No sore throat. No odynophagia. No congestion. RESPIRATORY: No cough, no congestion. No hemoptysis. No shortness of breath. CARDIOVASCULAR: No angina symptoms. No CHF symptoms. No atypical chest pain for CAD. No palpitations. No orthopnea. GASTROINTESTINAL: No abdominal pain. No nausea or vomiting. No diarrhea or constipation. No hematemesis. No hematochezia. GENITOURINARY: No urgency. No frequency. No dysuria. No hematuria. No obstructive symptoms. No discharge. No pain. No significant abnormal bleeding. MUSCULOSKELETAL: Mild pain in the neck, radiculopathy type of symptoms. NEUROLOGICAL: No headache. No neck pain. No syncope. No seizures. No dizziness. PSYCHIATRIC: Not anxious. No depression. No suicidal thoughts. No homicidal thoughts. SKIN: No rash. No lesions. No wounds. ENDOCRINE: No unexplained weight loss. No weight gain. HEMATOLOGIC/LYMPHATIC: No anemia. No purpura. No petechiae. No prolonged or excessive bleeding. No palpable lymph nodes. PHYSICAL EXAMINATION: HEENT: Head normocephalic, atraumatic. Eyes: Extraocular muscles are intact. Pupils are equal, round and reactive to light and accommodation. Ears: No lesions. Nose appeared normal. Throat: No exudate or erythema. NECK: Supple. No JVD, no carotid bruit. No lymphadenopathy or thyromegaly. LUNGS: Decreased breath sounds with mild expiratory wheeze. Percussion note normal. Chest symmetrical. HEART: S1, S2, no S3. No murmurs. No cyanosis or clubbing. No ascites. Pulses: Dorsalis pedis and posterior tibial pulses +1 to +2 both sides. ABDOMEN: Soft. Nontender. Bowel sounds active. No CVA tenderness. No mass felt. EXTREMITIES: No edema. Full range of motion of all extremities, equal. NEUROLOGIC: No focal deficit. Cranial nerves II through XII are grossly intact. No headache, no double vision or headache. SKIN: Not dry. Intact. Turgor - normal. LYMPHATIC: No palpable lymph nodes/no lymphedema. MUSCULOSKELETAL: Normal joints with no swelling. Muscle tone is normal. LABS: EKG sinus rhythm, right bundle branch block pattern. CK-MB negative. ASSESSMENT: 1. CHEST PAIN HAS PRACTICALLY RESOLVED, WHICH WAS PLEURITIC TYPE. 2. RADICULOPATHY IS UNDER CONTROL. 3. RESPIRATORY FAILURE SEEMS TO BE UNDER CONTROL WITH OXYGEN SATURATION 92% ON ROOM AIR. PLAN: 1. The patient is asked to be up and about. 2. Explained about smoking; counseling for smoking done. CONDITION: Stable TIME SPENT: More than 30 minutes. Plan and coordination of the patient's care discussed in the presence of nurse. NALLELY
--- NOTE | 2017-12-28 11:36 | PN ---
DATE OF SERVICE: 12/28/17 SUBJECTIVE: The patient was seen and examined with the nurse practitioner. The patient's condition is a lot better. She is breathing better. Chest pain absent. She has gone out and continued to smoke. Will start nicotine patch. The side effects discussed. Counseling for smoking done. TIME SPENT: More than 30 minutes. Plan and coordination of the patient's care discussed in the presence of nurse. NALLELY
--- NOTE | 2017-12-28 13:39 | RS.PTINEVL ---
Subjective - Patient information Date of Evaluation: 12/28/17 Date of Arrival on Unit: 12/25/17 Admitted From:: Home Diagnosis: pneumonia, arm pain RUE Usual Living Arrangement: With Spouse Home Environment: House, Stairs (few) Medical History: Hypertension, COPD Medical History Comments:: anxiety, seizures, per xray: chronic discogenic degenerative disease LATEX ALLERGY?: No Surgical History: Knee Replacement, Cholecystectomy, Hysterectomy Medications: see chart Subjective Information/ Patient Comments:: pt states she has been very weak since getting sick. states that she has been dropping things and unable to even feed self due to weakness BUE. - Level of function Prior to this admission, the patient could do the following:: Independent Selfcare, Independent ADL's, Independent Ambulation, Perform Freight Breaker/ Cooking, Drive, Participated in Social Activities Outside home Current Level of Function: Partially Dependent Current Equipment Used at Home: has a standard wx at home but doesn't use it, may need rolling walker for home Interventions - Objective Patient Orientation: Person, Place, Time Current Interventions: IV's, Oxygen, Telemetry Observation: pt with skin tear to L ankle. Range of Motion - ROM Right Upper Extremity AROM: WFL's Left Upper Extremity AROM: WFL's Right Lower Extremity AROM: WFL's Left Lower Extremity AROM: WFL's Muscle Strength - Muscle Strength Right Upper Extremity Strength: Mild Weakness (grossly 4-/5) Left Upper Extremity Strength: Mild Weakness (grossly 4-/5) Right Lower Extremity Strength: Mild Weakness (hip flex 3+/5, knee flex/ext 4-/5 , ankle DF/PF 4-/5) Left Lower Extremity Strength: Mild Weakness (hip flex 3+/5, knee flex/ext 4-/5 , ankle DF/PF 4-/5) Sensation - Sensation Right Upper Extremity Sensation: Intact/Normal Left Upper Extremity Sensation: Intact/Normal Right Lower Extremity Sensation: Intact/Normal Left Lower Extremity Sensation: Intact/Normal Palpation Palpation Findings: None/Normal Balance - Sitting Balance and Reactions Static Sitting Balance: Good Dynamic Sitting Balance: Fair - Standing Balance and Reactions Static Standing Balance: Poor Dynamic Standing Balance: Poor Standing Equilibrium Reactions: Delayed Left, Delayed Right Standing Protective Reactions: Delayed Left, Delayed Right Functional Mobility - Bed Mobility Rolling R/L: CGA Scooting: Mod Assist Supine to Sit: Min Assist Sit to Supine: Min Assist - Transfers Sit to Stand: Min Assist Stand to Sit: Min Assist - Safety Awareness Safety Awareness: Good ERIN INDEX SCORE: n/a Ambulation - Ambulation Assistive Device Used: Rolling Walker Orthotic/Prosthetic Device: No Distance: 140ft Assistance needed with Ambulation: Min Assist Quality of Ambulation: pt amb with O2 3 liters Gait Deviations: Forward posture, Short stride, Deviates from path Ambulation Comments: pt amb with flexed posture, decreased step length, required verbal and tactile cues to guide rwx and improve posture Treatment time - Time with patient Length of Evaluation: 26 Total treatment time: 30 Patient Education - Education Patient Education: Home Exercise Program, Education of Plan of Care Teaching Recipient: Patient Teaching Methods: Discussion, Demonstration Comments: discussion of POC as well as demonstration of safety with rwx. Assessment - Assessment Problem List:: Decreased level of function, Requires training/education, Decreased safety/Risk of falls, Weakness Rehab Potential: Good Further Therapy Indicated?: Yes Candidate for Swing Bed for Therapy Services?: Will reevaluate at a later date, Evaluation Complexity: HISTORY: Medium (HTN, COPD, angina, anxiety), EXAM OF BODY SYSTEMS: Medium (SOA, endurance, strength, balance, gait), CLINICAL PRESENTATION: Medium, CLINICAL DECISION MAKING: Medium Short Term Goals GOAL #1: pt demonstrate independence with rolling and scooting in bed Goal to be met by: 12/30/17 GOAL #2: pt transfer sup to/from sit to/from stand CGA x 1 Goal to be met by: 12/30/17 GOAL #3: pt amb with rwx with O2 150ft with no LOB and improved sequencing with rwx Goal to be met by: 12/30/17 GOAL #4: Improve BLE strength to 4- to 4/5 Goal to be met by: 12/30/17 Relationship Advisor Goals GOAL #1: pt independent with sup to/from sit, SBA sit to/from stand Goal to be met by: 01/02/18 GOAL #2: pt amb functional household distances with SBA with RWX Goal to be met by: 01/02/18 GOAL #3: pt with improved dyn stand balance to good- Goal to be met by: 01/02/18 Plan Plan of Care: Therapeutic EX, Therapeutic Activity Other:: gait training Frequency of Treatment: 1-2 X day, as tolerated Duration of Treatment: 5 days Anticipated Discharge Destination: Home Treatment Diagnosis (ICD 10 Codes): R26.2 difficulty walking. M62.91 general weakness Has the Physician been added for Co-signature?: Yes
--- NOTE | 2017-12-28 13:44 | RS.OTINEVL ---
Subjective - Patient information Date of Evaluation: 12/28/17 Date of Arrival on Unit: 12/25/17 Admitted From:: Home Usual Living Arrangement: With Spouse Living Arrangement Comments: Lives at home with her . Pt does not use a walker at home. Pt gets in a tub and her helps her get out of the tub. Pt has help from her . Pt continues to smoke. Home Environment: House, Stairs (few) Medical History: Hypertension, COPD Medical History Comments:: anxiety, seizures, per xray: chronic discogenic degenerative disease LATEX ALLERGY?: No Surgical History: Knee Replacement, Cholecystectomy, Hysterectomy Medications: see chart Subjective Information/ Patient Comments:: "I am dropping things with my hands. " Pt reports difficulty feeding herself. Pt has RUE customer resource specialist is 2+/5. - Level of function Prior to this admission, the patient could do the following:: Independent Selfcare, Independent ADL's, Independent Ambulation, Perform Pattern Fitter/ Cooking, Drive, Participated in Social Activities Outside home Abilities prior to this admission: Pt was having shaking of BUE. Pt is dropping items. Pt has difficulty gripping the utensil to feed herself. Current Equipment Used at Home: has a standard wx at home but doesn't use it, may need rolling walker for home Interventions - Objective Patient Orientation: Person, Place Current Interventions: IV's, Oxygen, Telemetry Observation: Pt is weak and short of breath with activity. Pt fatigues with activity. Pt is weak on the right UE more than the left. Interventions - ROM Right Upper Extremity AROM: WFL's Left Upper Extremity AROM: WFL's - Strength Right Upper Extremity Strength: Mild Weakness Left Upper Extremity Strength: Mild Weakness - Sensation Right Upper Extremity Sensation: Intact/Normal Left Upper Extremity Sensation: Intact/Normal Balance - Sitting Balance Static Sitting Balance: Fair Dynamic Sitting Balance: Fair - Standing Balance Static Standing Balance: Poor Dynamic Standing Balance: Poor - Comments Balance Assessment Comments: Poor ADL Skills - Self Feeding Self Feeding: Supervision - Grooming Grooming: Supervision - Bathing Bathing UE: CGA Bathing LE: Min Assist - Dressing Dressing UE: CGA Dressing LE: Min Assist - Toilet Management Toileting Management: Min Assist Functional Mobility - Bed Mobility Rolling R/L: Independent Scooting: Independent Supine to Sit: Independent Sit to Supine: Independent - Transfers Sit to Stand: CGA Stand to Sit: CGA Stand Pivot Transfers: CGA - Ambulation Weight Bearing Status: FWB Assistive Device Used: Rolling Walker Assistance needed with Ambulation: CGA - Safety Awareness Safety Awareness: Fair ERIN INDEX SCORE: . Additional Treatment Performed - Time with patient Length of Evaluation: 25 Total treatment time: 25 Activities Patient Interests:: Watching Television, Visiting/Socializing Patient Education Patient Education: Education of diagnosis Teaching Recipient: Patient Teaching Methods: Teach Back Method Used, Discussion Assessment Problem List:: Decreased level of function, Decreased safety/Risk of falls, Weakness Rehab Potential: Good Further Therapy Indicated?: Yes Evaluation Complexity: HISTORY: Medium, EXAM OF BODY SYSTEMS: Medium, CLINICAL DECISION MAKING: Medium Short Term Goals - Goals GOAL 1: Pt to increase RUE customer resource specialist to 4-/5 to increase self feeding with utensil. Goal to be met by: 01/01/18 GOAL 2: Pt to increase dyn. stand. balance to Fair+. Goal to be met by: 01/01/18 GOAL 3: Pt to increase activity tolerance to 10 minutes. Goal to be met by: 01/01/18 Halfway Goals GOAL 1: Pt to increase RUE customer resource specialist to 4/5 to increase self feeding with utensil. Goal to be met by: 01/05/18 GOAL 2: Pt to increase dyn. stand. balance to Fair+. Goal to be met by: 01/05/18 GOAL 3: Pt to increase activity tolerance to 15 minutes. Goal to be met by: 01/05/18 Plan Plan of Care: Therapeutic EX, Neuromuscular Re-Educ, Therapeutic Activity, Self- Care/Home Management Frequency of Treatment: 1-2 X day, as tolerated Duration of Treatment: 1 Week Anticipated Discharge Destination: Home Treatment Diagnosis (ICD 10 Codes): M62.81 Muscle Weakness, R27.8 Other lack of coordination, Z74.1 Need for assistance with personal care. Has the Physician been added for Co-signature?: Yes
--- NOTE | 2017-12-28 15:19 | PN ---
DATE OF SERVICE: 12/26/17 The patient is feeling down and somewhat depressed according to the daughter, Cathy, so we will start the patient on Lexapro 10 mg p.o. now and 10 mg p.o. every a.m. Also, Lovenox to be used 40 mg subq daily. The patient needs to be up and about. Needs to have lifestyle changes and this was discussed with the daughter. NALLELY
--- NOTE | 2017-12-28 15:33 | HP ---
ADMIT DATE: 12/25/17 DATE OF SERVICE: 12/26/17 HISTORY OF PRESENT ILLNESS: This is a 77 year old who presented to the emergency room with her left arm tingling, weakness, shortness of breath. She has severe COPD. PAST MEDICAL HISTORY: Severe COPD, heavy smoker, chronic bronchitis, recent fall, B12 deficiency, degenerative joint disease of the spine, hypertension, GERD, history of seizure disorder (last seizure was greater than 20 years ago), restless leg syndrome, chronic bronchitis, right bundle branch block. PAST SURGICAL HISTORY: Heart cath on 11/28 which was normal at [facility], status post hysterectomy, cholecystectomy, right knee surgery, cataracts REVIEW OF SYSTEMS: Left arm weakness. Generalized weakness. CONSTITUTIONAL: No fever, no fatigue. HEENT: No sinus drainage, no sore throat. RESPIRATORY: Shortness of breath, coughing, wheezing. CARDIOVASCULAR: No atypical chest pain for coronary artery disease. No angina , CHF symptoms, palpitations or shortness of breath. GASTROINTESTINAL: No melena or abdominal pain. No GERD. GENITOURINARY: No hematuria, no polyuria. HOSPITAL TELEVISION RENTAL CLERK: No blackout, no dizziness, no headache, no double vision. MUSCULOSKELETAL: No osteoarthritis pain, no joint swelling. ENDOCRINE: No weight loss, no weight gain. SKIN: Not dry, no rash. PSYCHIATRIC: Not anxious, no depression, no suicidal thoughts, no homicidal thoughts. SOCIAL HISTORY: Patient is a heavy smoker and lives at home with her . MEDICATIONS: Ropinirole 1mg one PO bedtime, Nexium 1 PO BID PRN, Premarin 0.625 mg PO bedtime , Diclofenac sodium 75 mg PO daily, Albuterol two puffs Q 6 hr PRN, Losartan one PO daily, Oxycodone 7.5 one PO BID, Xanax 0.25 two tabs at bedtime, Phenobarbital 100 mg PO bedtime, Ipratropium/Albuterol one spray daily. ALLERGIES: Ciprofloxacin, Imipramine, Latex, Penicillins, Phenytoin, Tramadol, Band aids PHYSICAL EXAMINATION: V/S: Temp 98.3, heart rate 89, respirations 20, blood pressure 150/71, pulse ox 87% GENERAL APPEARANCE: Oriented times three. HEENT: Normal. NECK: No JVP, no bruits. RESPIRATORY: Severely diminished breath sounds bilaterally with inspiratory and expiratory wheezing bilateraly with crackles on the left side. She is drowsy in mild respiratory distress. CARDIOVASCULAR: S1, S2, no S3, no murmurs. No cyanosis, clubbing. No ascites. GI/ABDOMEN: No tenderness. Bowel sounds are active. EXTREMITIES: No edema, pulses +1, equal. HOSPITAL TELEVISION RENTAL CLERK: Deep tendon reflexes, sensory, motor and gait all normal. LABS: White count 9.68, hemoglobin 12.8, hematocrit 35.6, platelets 274, sodium 129, potassium 3.89, chloride 95.2, carbon dioxide 26, BUN 21, creatinine 1.12, AST 30, ALT 16, alk phos 139, troponin 1.7, CK 57, total protein 7.26 CT scan showed atelectasis versus pneumonia in the left lower lobe. CT of the brain was normal, no stroke. ASSESSMENT: 1. LEFT LOWER LOBE PNEUMONIA 2. SEVERE COPD, HEAVY SMOKER 3. HYPONATREMIA 4. GENERALIZED WEAKNESS 5. LEFT SIDED WEAKNESS 6. SHORTNESS OF BREATH PLAN: 1. We will admit 2. Routine telemetry orders - CBC, CMP daily 3. Normal saline at 100cc/hr 4. 1cc of Decadron IM today 5. Rocephin 1 gram IV daily 6. DuoNeb Q six hours scheduled 7. Continue all home medications. 8. Regular diet 9. Oxygen at 1-2L ABG's on room air 10. Fall precautions 11. Will follow closely TIME SPENT: More than 70 minutes. MTDD
[2017-12-28] MEDS: PHENOBARBITAL 100 MG PO SCH (20:47)
[2017-12-28] MEDS: XANAX PO SCH (20:48)
[2017-12-28] MEDS: REQUIP PO SCH (20:48)
[2017-12-28] MEDS: PREMARIN PO SCH (20:48)
[2017-12-29] MEDS: DUONEB NEB SCH ×5 (01:34→23:02)
[2017-12-29] MEDS: PROTONIX PO SCH ×2 (05:55→16:09)
[2017-12-29] MEDS ORDERED: DULCOLAX RC STA (07:52)
[2017-12-29] MEDS: ROCEPHIN 1 GM in SODIUM CHLORIDE 50 ML IV SCH (08:38)
[2017-12-29] MEDS: LEXAPRO PO SCH (08:40)
[2017-12-29] MEDS: HYZAAR 50-12.5 MG TAB PO SCH (08:40)
[2017-12-29] MEDS: NORVASC PO SCH ×2 (08:40→20:35)
[2017-12-29] MEDS: NICODERM 21 MG TD SCH (08:40)
[2017-12-29] MEDS: LOVENOX SUBCUT SCH (08:41)
[2017-12-29] MEDS: SOLU-CORTEF 100 MG IVP SCH ×2 (08:41→20:34)
[2017-12-29] MEDS: COLACE PO SCH ×2 (08:41→20:35)
[2017-12-29] MEDS: PERCOCET 7.5-325 PO SCH ×2 (08:41→20:35)
[2017-12-29] MEDS: XANAX PO SCH (20:35)
[2017-12-29] MEDS: REQUIP PO SCH (20:35)
[2017-12-29] MEDS: PREMARIN PO SCH (20:35)
[2017-12-29] MEDS: PHENOBARBITAL 100 MG PO SCH (20:36)
[2017-12-30] MEDS: DUONEB NEB SCH ×2 (04:45→11:10)
[2017-12-30] MEDS: PROTONIX PO SCH (05:46)
[2017-12-30] MEDS: ROCEPHIN 1 GM in SODIUM CHLORIDE 50 ML IV SCH (08:53)
[2017-12-30] MEDS: NICODERM 21 MG TD SCH (08:53)
[2017-12-30] MEDS: COLACE PO SCH (08:55)
[2017-12-30] MEDS: HYZAAR 50-12.5 MG TAB PO SCH (08:55)
[2017-12-30] MEDS: LEXAPRO PO SCH (08:55)
[2017-12-30] MEDS: NORVASC PO SCH (08:55)
[2017-12-30] MEDS: PERCOCET 7.5-325 PO SCH (08:55)
[2017-12-30] MEDS: LOVENOX SUBCUT SCH (08:56)
[2017-12-30] MEDS: SOLU-CORTEF 100 MG IVP SCH (08:56)
--- NOTE | 2017-12-30 10:47 | PN ---
DATE OF SERVICE: 12/30/17 SUBJECTIVE: The patient is feeling better. She is still somewhat weak. She has been working with Physical Therapy and showing improvement. She states she is ready to go home. She has been eating 75 to 100% of her meals. She is wearing oxygen. Will do repeat chest x-ray and three-step 02 prior to discharge. REVIEW OF SYSTEMS: CONSTITUTIONAL: Weakness. No night sweats. No malaise, lethargy. No fever or chills. HEENT: Eyes: No visual changes. No eye pain. No eye discharge. ENT: No runny nose. No epistaxis. No sinus pain. No sore throat. No odynophagia. No congestion. RESPIRATORY: Cough and wheezing. No hemoptysis. No shortness of breath. CARDIOVASCULAR: No angina symptoms. No CHF symptoms. No atypical chest pain for CAD. No palpitations. No orthopnea. GASTROINTESTINAL: No abdominal pain. No nausea or vomiting. No diarrhea or constipation. No hematemesis. No hematochezia. GENITOURINARY: No urgency. No frequency. No dysuria. No hematuria. No obstructive symptoms. No discharge. No pain. No significant abnormal bleeding. MUSCULOSKELETAL: No musculoskeletal pain; no joint swelling. NEUROLOGICAL: No headache. No neck pain. No syncope. No seizures. No dizziness. PSYCHIATRIC: Not anxious. No depression. No suicidal thoughts. No homicidal thoughts. SKIN: No rash. No lesions. No wounds. ENDOCRINE: No unexplained weight loss. No weight gain. HEMATOLOGIC/LYMPHATIC: No anemia. No purpura. No petechiae. No prolonged or excessive bleeding. No palpable lymph nodes. PHYSICAL EXAMINATION: VITAL SIGNS: Temperature 98.0, pulse 72, respiratory rate 22, BP 143/68, 02 sat 98. HEENT: Head normocephalic, atraumatic. Eyes: Extraocular muscles are intact. Pupils are equal, round and reactive to light and accommodation. Ears: No lesions. Nose appeared normal. Throat: No exudate or erythema. NECK: Supple. No JVD, no carotid bruit. No lymphadenopathy or thyromegaly. LUNGS: Diminished breath sounds bilaterally with improving bilateral inspiratory and expiratory wheezing. Percussion note normal. Chest symmetrical. HEART: S1, S2, no S3. No murmurs. No cyanosis or clubbing. No ascites. Pulses: Dorsalis pedis and posterior tibial pulses +1 to +2 both sides. ABDOMEN: Soft. Nontender. Bowel sounds active. No CVA tenderness. No mass felt. EXTREMITIES: No edema. Full range of motion of all extremities, equal. NEUROLOGIC: No focal deficit. Cranial nerves II through XII are grossly intact. No headache, no double vision or headache. SKIN: Not dry. Intact. Turgor - normal. LYMPHATIC: No palpable lymph nodes/no lymphedema. MUSCULOSKELETAL: Normal joints with no swelling. Muscle tone is normal. LABS: WBC 6.99, hemoglobin 10.4, platelets 309, hematocrit 29.8. Chemistries: Sodium 132.8, chloride 99.6, BUN 20.7, glucose 111.6, K+ 3.52, c02 29.6, creatinine 0.90. ASSESSMENT: 1. LEFT LOWER LOBE PNEUMONIA 2. SEVERE COPD 3. HEAVY SMOKER 4. CHRONIC BACK PAIN 5. LEG WEAKNESS 6. ANXIETY/DEPRESSION 7. HISTORY OF SEIZURE DISORDER 8. HYPERTENSION PLAN: 1. We will plan on discharging her home today. She refuses physical therapy at home. 2. Will do chest x-ray and three-step 02 prior to discharge. 3. Lexapro 20 mg daily to continue at home. 4. Will send her home with Keflex 500 mg p.o. b.i.d. for the next 10 days along with Prednisone 20 mg b.i.d. times five days and daily times five days. 5. Face to face was discussed concerning home 02 which the patient will benefit from. The patient is agreeable. TIME SPENT: More than 30 minutes. Plan and coordination of the patient's care discussed in the presence of nurse. NALLELY
[2017-12-30 10:51] VITALS: BP 153/69; TEMP 97.6
--- NOTE | 2017-12-30 11:55 | CM.DICTOOL ---
ADMISSION: 12/25/17 17:25 DISCHARGE: 12/30/17 FINAL DIAGNOSIS PNEUMONIA, LLL CHEST PAIN PLEURITIC COPD HYPERTENSION DEPRESSION ANXIETY GERD CHOLECYSTECTOMY HYSTERECTOMY MENISCUS REPAIR, RIGHT KNEE CATARACT EXTRACTION HEART CATH, 2 MONTHS AGO TOBACCO ABUSE, 1 1/2 PPD SEIZURE DISORDER LAST VITALS Temp Pulse Resp BP Pulse Ox 97.6 F 82 14 153/69 H 92 L 12/30/17 10:00 12/30/17 10:00 12/30/17 10:00 12/30/17 10:00 12/30/17 10:00 TAKE THESE MEDICATIONS AT HOME Amlodipine Besylate (Norvasc) 5 mg PO BID [facility] Last Admin: 12/30/17 08:55 Dose: 5 mg Escitalopram Oxalate (Lexapro) 20 mg PO DAILY [facility] Last Admin: 12/30/17 08:55 Dose: 20 mg Estrogens Conjugated (Premarin) 0.625 mg PO BEDTIME [facility] Last Admin: 12/29/17 20:35 Dose: 0.625 mg HCTZ/Losartan Potassium (Hyzaar 50-12.5 Mg Tab) 2 tab PO DAILY [facility] Last Admin: 12/30/17 08:55 Dose: 2 tab Non-Formulary Medication (Phenobarbital [Phenobarbital]) 100 mg PO BEDTIME [facility] Last Admin: 12/29/17 20:36 Dose: 100 mg Oxycodone/Acetaminophen (Percocet 7.5-325) 1 tab PO Q12HR [facility] Last Admin: 12/30/17 08:55 Dose: 1 tab Ropinirole HCl (Requip) 1 mg PO BEDTIME [facility] Last Admin: 12/29/17 20:35 Dose: 1 mg ALLERGIES ciprofloxacin [From Cipro] Adverse Reaction (Verified 12/25/17 15:02) imipramine [From Tofranil] Adverse Reaction (Verified 12/25/17 15:02) latex Adverse Reaction (Verified 12/25/17 15:02) Penicillins Adverse Reaction (Verified 12/25/17 15:02) phenytoin [From Dilantin] Adverse Reaction (Verified 12/25/17 15:02) tramadol Adverse Reaction (Verified 12/25/17 15:02) BANDAIDES Adverse Reaction (Uncoded 11/16/17 22:31) Discontinued Medications Alprazolam (Xanax) 0.5 mg PO BEDTIME [facility] Last Admin: 09/14/18 21:22 Dose: Not Given Amlodipine Besylate (Norvasc) 5 mg PO BID [facility] Amlodipine Besylate (Norvasc) 5 mg PO TID [facility] Last Admin: 12/25/17 21:21 Dose: 5 mg Bisacodyl (Dulcolax) 10 mg RC ONCE STA Stop: 12/29/17 07:53 Last Admin: 12/29/17 08:41 Dose: 10 mg Dexamethasone Sodium Phosphate (Decadron 4 Mg/Ml Sdv) 4 mg IM ONCE STA Stop: 12/26/17 09:59 Last Admin: 12/26/17 10:13 Dose: 4 mg Dexamethasone Sodium Phosphate (Decadron 4 Mg/Ml Sdv) 2 mg IM ONCE ONE Stop: 12/27/17 09:01 Last Admin: 12/27/17 08:47 Dose: 2 mg Diclofenac Sodium (Diclofenac Sodium) 75 mg PO DAILYWM [facility] Last Admin: 12/26/17 09:19 Dose: 75 mg Escitalopram Oxalate (Lexapro) 10 mg PO DAILY [facility] Last Admin: 12/28/17 09:08 Dose: 10 mg Escitalopram Oxalate (Lexapro) 10 mg PO NOW ONE Stop: 12/28/17 09:31 Last Admin: 12/28/17 10:28 Dose: 10 mg Sodium Chloride (Sodium Chloride) 1,000 mls @ 75 mls/hr IV .[id number] [facility] Last Admin: 12/28/17 04:10 Dose: 75 mls/hr Ceftriaxone Sodium 1 gm/ (Sodium Chloride) 50 mls @ 75 mls/hr IV ONCE STA Stop: 12/25/17 17:47 Last Admin: 12/25/17 17:22 Dose: 75 mls/hr Non-Formulary Medication (Esomeprazole Magnesium [Nexium]) 1 tab PO BID [facility] Last Admin: 12/25/17 22:58 Dose: 1 tab Non-Formulary Medication (Phenobarbital [Phenobarbital]) 100 mg PO BEDTIME [facility] Last Admin: 12/25/17 22:58 Dose: 100 mg Oxycodone/Acetaminophen (Percocet 7.5-325) tab PO BID [facility] Oxycodone/Acetaminophen (Percocet 7.5-325) 1 tab PO Q8H [facility] Last Admin: 12/26/17 05:21 Dose: 1 tab Oxycodone/Acetaminophen (Percocet 7.5-325) 1 tab PO Q12H [facility] Potassium Chloride (K-Dur) 40 meq PO BIDWM [facility] Stop: 12/28/17 21:10 Last Admin: 12/28/17 16:57 Dose: 40 meq Ropinirole HCl (Requip) 1 mg PO ONCE STA Stop: 12/26/17 15:44 Last Admin: 12/26/17 16:09 Dose: 1 mg Sodium Chloride (Saline Flush) 1 syr IVF Q8HR [facility] Last Admin: 12/28/17 13:00 Dose: Not Given Sodium Chloride (Saline Flush) 1 syr IVF Q8HR PRN PRN Reason: as needed NEW PRESCRIPTIONS: NEW MEDICATIONS: 1. LEXAPRO 20MG TAKE 1 TABLET DAILY 2. PREDNISONE 20MG TAKE 1 TABLET 2 TIMES A DAY FOR 5 DAYS THEN 1 TABLET DAILY FOR 5 DAYS. TAKE WITH FOOD. 3. KEFLEX 500MG TAKE 1 CAPSULE 2 TIMES A DAY FOR 10 DAYS. TAKE UNTIL ALL GONE. SMOKING: STOP SMOKING. DISEASE SPECIFIC EDUCATION: ANGINA PNEUMONIA MEDICATIONS DIET ACTIVITY O2 THERAPY LAB REVIEW: 12/30/17 04:15 12/30/17 04:15 12/30/17 04:15: Sodium 132.8 L, Potassium 3.52, Chloride 99.6, Carbon Dioxide 29.6, Anion Gap 7.12, BUN 20.7 H, Creatinine 0.90, Estimated GFR (MDRD) 61.00, BUN/Creatinine Ratio 23.00, Glucose 111.6 H, Calcium 8.80, Total Bilirubin 0.15 L, AST 19.4, ALT 29.2, Alkaline Phosphatase 84.1, Total Protein 5.74 L, Albumin 3.16 L, Globulin 2.58, Albumin/Globulin Ratio 1.22 12/30/17 04:15: WBC 6.99, RBC 3.13 L, Hgb 10.4 L, Hct 29.8 L, MCV 95.2, MCH 33.2 H, MCHC 34.9, RDW Coeff of Dayana 13.0, Plt Count 309, Immature Gran % (Auto) 0.3, Neut % (Auto) 63.2, Lymph % (Auto) 28.2, [place] % (Auto) 7.9, Eos % (Auto) 0.1, Baso % (Auto) 0.3, Immature Gran # (Auto) 0.0, Neut # (Auto) 4.4, Lymph # ( Auto) 2.0, [place] # (Auto) 0.6, Eos # (Auto) 0.0, Baso # (Auto) 0.0 PLAN: DISCHARGE HOME TODAY. 12/30/17 CONTINUE HOME MEDICATIONS PER NURSING SHEETS. NEW MEDICATIONS: 1. LEXAPRO 20MG TAKE 1 TABLET DAILY 2. PREDNISONE 20MG TAKE 1 TABLET 2 TIMES A DAY FOR 5 DAYS THEN 1 TABLET DAILY FOR 5 DAYS. TAKE WITH FOOD. 3. KEFLEX 500MG TAKE 1 CAPSULE 2 TIMES A DAY FOR 10 DAYS. TAKE UNTIL ALL GONE. DIET TOLERATED. ACTIVITY TOLERATED. AVOID EXTREME HEAT. WEAR O2 AT 3L/C AT ALL TIMES. FOLLOW UP WITH DR. MARINELLI ON Thursday AT 1015. IF UNABLE TO KEEP APPOINTMENT, CALL TO RESCHEDULE. [phone]. PATIENT IS A FULL CODE. SITTING UP ONSIDE OF BED. ALERT AND ORIENTED X 4. Christiana VEGA APRN INTO SEE PATIENT. PATIENT STATES FEELING BETTER. Christiana VEGA DISCUSSED PLAN OF CARE INCLUDING DISCHARGE INSTRUCTIONS, MEDICATIONS, O2 THERAPY NEED AND SMOKING CESSATION. PATIENT VERBALIZES UNDERSTANDING AND AGREEMENT. APPETITE IS FAIR. VITAL SIGNS ARE STABLE. HAS BEEN AFEBRILE. POX 98% ON O2 AT 3L/C. HEART TONES ARE REGUALR WITH TELEMETRY REVEALING SINUS RHYTHM WITH BBB. NO C/O PAIN OR DISCOMFORT. LUNGS ARE CLEAR WITH DIMINISHED BREATH SOUNDS. HAS DRY COUGH. HAS DYSPNEA WITH ACTIVITY. ABDOMEN IS SOFT, NON-TENDER WITH BOWEL SOUNDS POSITIVE IN ALL 4 QUADS. LAST BM 12/29/17. PEDAL PULSES POSITIVE WITHOUT EDEMA. HAS SALINE LOCK IN LEFT FOREARM SITE IS CLEAR. IS A STANDBY ASSIST WITH STEADY GAIT. DR. NIALL MARINELLI MD Christiana VEGA APRN
--- NOTE | 2017-12-30 13:49 | DI ---
EXAM: Two views of the chest. History: Follow-up pneumonia, cough. Comparison: Chest radiograph 12/25/2017 Findings: Heart size is normal. Persistent but improving left lower lobe infiltrate. No pneumothor ax. Small left pleural effusion. No acute osseous abnormalities. Impression: Persistent but improving left lower lobe pneumonia. Continued follow-up recommended.
--- NOTE | 2017-12-31 08:59 | DS ---
DATE OF SERVICE: 12/30/17 FINAL DIAGNOSIS: 1. PNEUMONIA LEFT LOWER LOBE 2. CHEST PAIN PLEURITIC 3. COPD 4. HYPERTENSION 5. DEPRESSION 6. ANXIETY 7. GERD 8. CHOLECYSTECTOMY 9. HYSTERECTOMY 10. MENISCUS REPAIR, RIGHT KNEE 11. CATARACT EXTRACTION 12. HEART CATH, 2 MONTHS AGO 13. TOBACCO ABUSE, 1 04/14 PPD 14. SEIZURE DISORDER 15. CHRONIC BACK PAIN 16. LONG-TERM USE OF OPIODS DISCHARGE INSTRUCTIONS: 1. Followup appointment with Dr. An on January 06 at 1015. If unable to keep appointment, call to reschedule. The patient is a full code. 2. Wear 02 at 3L/C at all times MEDICATIONS AT DISCHARGE: Amlodipine 5 mg p.o. b.i.d. KARLOS Lexapro 20 mg p.o. daily KARLOS Premarin 0.625 mg p.o. bedtime KARLOS HCTZ/Losartan two tab p.o. daily KARLOS Phenobarbital 100 mg p.o. bedtime KARLOS Percocet 7.5-325 one tab p.o. q.12hr KARLOS Ropinirole 1 mg p.o. bedtime KARLOS NEW PRESCRIPTIONS: 1. Lexapro 20 mg take one tablet daily. 2. Prednisone 20 mg take one tablet two times a day for five days then one tablet daily for five days. Take with food. 3. Keflex 500 mg take one capsule two times a day for 10 days. Take until all gone. DISCONTINUED MEDICATIONS: Xanax Norvasc Dulcolax Decadron Diclofenac Lexapro Lexapro Sodium chloride Nexium Phenobarbitol Percocet K-Dur Requip 1 mg p.o. once stat DIET INSTRUCTIONS: As tolerated. ACTIVITY: Activity as tolerated. Avoid extreme heat. SMOKING: Stop smoking DISEASE SPECIFIC EDUCATION: Angina Pneumonia Medications Diet Activity 02 therapy HOSPITAL COURSE: This is a 77-year-old white female who presented to the emergency room with cough, congestion, wheezing and pleuritic type chest pain. She recently was hospitalized in [place] with chest pain and had a cath in November of 2017 which was negative. Chest x-ray revealed possible pneumonia in the left lower lobe. ABGs were abnormal. She was admitted, placed on Rocepin 1 gm IV daily along with Zithromax 500 mg p.o. daily. Initially was given 1 cc Decadron however due to her increased wheezing, the Decadron was discontinued. She was started on Solu-Cortef 100 mg IV q.12hr. During her hospital stay she has had a lot of anxiety, tearfulness. She has become weaker due to chronic lung disease and shortness of breath with exertion. She was started on Lexapro 10 mg and then increased to 20 mg. Today on day of discharge she is not tearful. She has been up and about. I do believe this is helping. She does have a long history of anxiety and depression. She takes Xanax and has been on other medications in the past. Kidney function was slightly elevated on admission with BUN 26. She was started on IV fluids, NS at 75 cc/hr. These were discontinued after the first 24 hours. Due to her weakness, inability to get up and walk on her own she did have a PT/OT evaluation for which she did qualify however she does refuse to have PT at home. She is somewhat drowsy and had c02 retention on ABGs on admission. She has a chronic elevated troponin. This has been present in the past hospital visits. The only distinguishing thing about this patient is that she has been on Phenobarb long-term. Her levels have all been normal. She is a heavy smoker however there were no acute cardiac changes. Her chest pain is pleuritic associated with coughing and shortness of breath. Questionably the c02 retention was thought to be because of extra Phenobarb or Percocet which she has taken long-term. This has been cut back to b.i.d., was initially t.i.d. Education has been provided to her regarding medication administration. Blood pressure has been controlled. She has been eating well. Oxygen is 98% on 2L. She failed her three-step 02 with 02 sat down to 87 with exertion so she qualifies for home 02. Chest x-ray shows slight improvement. She will be discharged home with new medication of Lexapro 20 mg daily and then will do Prednisone 20 mg b.i.d. times five days and then daily times five days. Will followup with her in the office next week. TIME SPENT: More than 60 minutes. [facility]
--- NOTE | 2017-12-31 11:08 | PN ---
DATE OF SERVICE: 12/30/17 SUBJECTIVE: The patient was seen and examined with the nurse practitioner. Her condition is stable. She is up and about. She is trying to quit smoking. PHYSICAL EXAMINATION: HEENT: Head normocephalic, atraumatic. Eyes: Extraocular muscles are intact. Pupils are equal, round and reactive to light and accommodation. Ears: No lesions. Nose appeared normal. Throat: No exudate or erythema. NECK: Supple. No JVD, no carotid bruit. No lymphadenopathy or thyromegaly. LUNGS: Clear to auscultation. Percussion note normal. Chest symmetrical. HEART: S1, S2, no S3. No murmurs. No cyanosis or clubbing. No ascites. Pulses: Dorsalis pedis and posterior tibial pulses +1 to +2 both sides. ABDOMEN: Soft. Nontender. Bowel sounds active. No CVA tenderness. No mass felt. EXTREMITIES: No edema. Full range of motion of all extremities, equal. NEUROLOGIC: No focal deficit. Cranial nerves II through XII are grossly intact. No headache, no double vision or headache. SKIN: Not dry. Intact. Turgor - normal. LYMPHATIC: No palpable lymph nodes/no lymphedema. MUSCULOSKELETAL: Normal joints with no swelling. Muscle tone is normal. PLAN: 1. Pulmonary rehab advised. She declined. TIME SPENT: More than 30 minutes. Plan and coordination of the patient's care discussed in the presence of nurse. NALLELY
--- NOTE | 2017-12-31 13:56 | PN ---
DATE OF SERVICE: 12/29/17 SUBJECTIVE: The patient was seen and examined. The patient is doing very well. Her cough is much less. She wants to quit smoking, but still has continued to smoke. She has gone out during the hospital stay everyday and smoked four to five cigarettes a day. The is in the room. REVIEW OF SYSTEMS: CONSTITUTIONAL: No night sweats. No fatigue, malaise, lethargy. No fever or chills. HEENT: Eyes: No visual changes. No eye pain. No eye discharge. ENT: No runny nose. No epistaxis. No sinus pain. No sore throat. No odynophagia. No congestion. RESPIRATORY: Mild cough, no congestion. No hemoptysis. No shortness of breath. CARDIOVASCULAR: No angina symptoms. No CHF symptoms. No atypical chest pain for CAD. No palpitations. No orthopnea. GASTROINTESTINAL: No abdominal pain. No nausea or vomiting. No diarrhea or constipation. No hematemesis. No hematochezia. GENITOURINARY: No urgency. No frequency. No dysuria. No hematuria. No obstructive symptoms. No discharge. No pain. No significant abnormal bleeding. MUSCULOSKELETAL: No musculoskeletal pain; no joint swelling. NEUROLOGICAL: No headache. No neck pain. No syncope. No seizures. No dizziness. PSYCHIATRIC: Not anxious. No depression. No suicidal thoughts. No homicidal thoughts. SKIN: No rash. No lesions. No wounds. ENDOCRINE: No unexplained weight loss. No weight gain. HEMATOLOGIC/LYMPHATIC: No anemia. No purpura. No petechiae. No prolonged or excessive bleeding. No palpable lymph nodes. PHYSICAL EXAMINATION: GENERAL: The patient is in bed in no distress. HEENT: Head normocephalic, atraumatic. Eyes: Extraocular muscles are intact. Pupils are equal, round and reactive to light and accommodation. Ears: No lesions. Nose appeared normal. Throat: No exudate or erythema. NECK: Supple. No JVD, no carotid bruit. No lymphadenopathy or thyromegaly. LUNGS: Decreased breath sounds, but clear. Percussion note normal. Chest symmetrical. HEART: S1, S2, no S3. No murmurs. No cyanosis or clubbing. No ascites. Pulses: Dorsalis pedis and posterior tibial pulses +1 to +2 both sides. ABDOMEN: Soft. Nontender. Bowel sounds active. No CVA tenderness. No mass felt. EXTREMITIES: No edema. Full range of motion of all extremities, equal. NEUROLOGIC: No focal deficit. Cranial nerves II through XII are grossly intact. No headache, no double vision or headache. SKIN: Not dry. Intact. Turgor - normal. LYMPHATIC: No palpable lymph nodes/no lymphedema. MUSCULOSKELETAL: Normal joints with no swelling. Muscle tone is normal. ASSESSMENT: 1. ACUTE BRONCHITIS 2. PLEURITIC PAIN RESOLVED 3. SEIZURE DISORDER 4. SMOKING- COUNSELLING FOR SMOKING DONE PLAN: 1. The patient will be continued on steroids, antibiotics. 2. Pulmonary rehab discussed with the patient. 3. The patient is unable to do PFT. 4. The patient is on nicotine patch. Advised to buy over the counter and continue it. CONDITION: Stable. TIME SPENT: More than 30 minutes. Plan and coordination of the patient's care discussed in the presence of nurse. NALLELY
--- NOTE | 2018-01-01 15:31 | RS.OTQKDC ---
OT Discharge Date of Discharge: 12/30/17 Reason for Discharge: Pt discharged to home.
== END 2017-12-30 16:55 | disposition home or self-care (01) | DRG 947 ==
LOC: ED 14:53 → MEDSURG B 17:25
PROVIDERS: ADMIT Internal Medicine; ATTEND Internal Medicine
DX: R53.1 Weakness (principal); J18.9 Pneumonia, unspecified organism; J96.90 Respiratory failure, unspecified, unspecified whether with hypoxia or hypercapnia; E87.1 Hypo-osmolality and hyponatremia; E78.5 Hyperlipidemia, unspecified; G89.29 Other chronic pain; G40.909 Epilepsy, unspecified, not intractable, without status epilepticus; M25.512 Pain in left shoulder; R07.81 Pleurodynia; R06.02 Shortness of breath; J40 Bronchitis, not specified as acute or chronic; J44.9 Chronic obstructive pulmonary disease, unspecified; I10 Essential (primary) hypertension; F41.8 Other specified anxiety disorders; K21.9 Gastro-esophageal reflux disease without esophagitis
CPT/HCPCS: 36415; 80053; 80184; 82550; 82803; 84484; 85025; 87040; 93005; 93010; 94640; 94761; 96365; 99284

== ENCOUNTER 2018-01-11 10:57 | Outpatient (CLI) ==
--- NOTE | 2018-01-11 13:10 | CT ---
EXAM: CT of the chest without contrast History: Follow-up lung nodules. Comparison: Chest CT 11/16/2017 Technique: Multiplanar CT images through the thorax were obtained without the administration of IV c ontrast Findings: Heart size is borderline enlarged. No pericardial effusion. No thoracic aortic aneurysm. No axillary lymphadenopathy. No pathologically enlarged mediastinal lymph nodes. Evaluation for h ilar lymph nodes is limited due to lack of IV contrast. Mild emphysema again noted. No pneumothorax . There is new consolidation and atelectasis within the left lower lobe which could be postobstructi ve. This is obscuring the previously described left lower lobe ground-glass nodule. Within the visualized upper abdomen, status post cholecystectomy. Colonic diverticulosis. No acute osseous abnormalities. Impression: There is new atelectasis and pneumonia within the left lower lobe which could be postobs tructive. Bronchoscopy is recommended.
== END 2018-01-11 10:58 | disposition home or self-care (01) ==
LOC: RAD 10:57
PROVIDERS: ATTEND Internal Medicine Pulmonary Disease
DX: R91.1 Solitary pulmonary nodule (principal)

== ENCOUNTER 2018-04-23 14:00 | Outpatient (RCR) ==
--- NOTE | 2018-04-22 09:45 | RS.OPPTEV2 ---
Date of Note: 04/21/18 Visit #: 1 Number of visits approved by Insurance: n/a Date of Evaluation: 04/21/18 Payer Source: MEDICARE Surgery Performed?: No Treatment Diagnosis: Leg weakness, hand weakness, ataxia History of Condition/Mechanism of Injury:: pt reports that she suffered a fall in dec or jan 2018 from her porch. She has been having pain in her cervical spine as well as numbness and tingling B hands and increased weakness in her LE' s. (Occupational Therapy evaluated pt for UE weakness and cervical pain) Prior Level of Function.....Patient was independent with: ADL's, Self Care, Ambulation/Mobility, Community Integration/Access Functional Limitations: Reaching, Pushing, Pulling, Lifting, Carrying, Standing , Bending, Squatting, Ambulation, Community Access/Integration Current Subjective/complaints:: pt reports that she has much difficulty holding things and with any fine motor. She states she feels she has gotten weaker and unsteady because she can't do anything with her hands so she has been sitting more. Treatment Side (optional): N/A *Precautions: fall precautions. Medical History Medical History: Hypertension, COPD, Arthritis Medical History Comments:: anxiety, seizures, GERD, DJD spine Surgical History: Knee Replacement, Cholecystectomy, Hysterectomy Smoking Status: Current every day smoker Diagnostic Testing/Imaging:: Cervical spine CT: no acute fracture or subluxation of the cervical spine. Severe disc space narrowing at C6-C7 with endplate sclerosis and osteophyte formation. Moderate to severe disc space narrowing at C5-C6 and moderate disc space narrowing C3- C4. Hx Home Medications: esomerazole magnesium, amlodipine besylate, ropinirole hcl , estrogens, escitalopram oxalate, combivent, albuterol, diclofenac sodium, losartan/HCTZ, oxycodone HCL/acetaminophen, alprazolam, phenobarbital Patient's Goals: get stronger Pain Assessment - Pain Description Pain Location: cervical spine Pain Description: Aching Current Pain Intensity: 5 Worst Pain Intensity: 8 Functional Outcome Measure LE Functional Scale: 36 Dynamic Gait: 11 - G Codes & Severity Modifier G Codes & Modifier: n/a Source of G Code score: n/a Observation - Observation Posture: Forward Head, Rounded Shoulders Handedness: Right Gait - Gait Pattern General Gait Pattern Observation: Ataxic Gait, Decrease Stride Lngth (R), Decrease Stride Lngth (L) Gait Comments: gait speed is 0.55 meters/sec consistent with limited community ambulator General Range of Motion: WFL's BUE and BLE Muscle Strength: BLE hip flex 4-/5, knee flex/ext 4/5, ankle DF/PF 4/5. BUE grossly 4-/5 pt with decreased programmer engineering and scientific (refer to OT eval done this same date) - ROM Cervical Spine Range of Motion Limitations: Soft Tissue Tightness, Muscle Weakness, Pain Comments: Refer to OT eval done this date. Palpation Palpation Findings: Tenderness, Muscle Guarding Comments:: upper trap Sensation - Sensation Right Upper Extremity: Impaired Left Upper Extremity: Impaired Right Lower Extremity: Intact/Normal Left Lower Extremity: Intact/Normal Comments: pt with numbness and tingling B hands as well as decreased proprioception. (OT eval more detailed) Balance - Sitting Balance Static Sitting Balance: Good Dynamic Sitting Balance: Good - Standing Balance Static Standing Balance: Fair Dynamic Standing Balance: Poor - Comments Balance Assessment Comments: dyn gait index 03/06 consistent with high risk of falls. gait speed 0.55 m/s Interventions - Exercise/Activities/Manual Therapy Exercises/Activities: pt performed AP, LAQ, seated hip flex, isometric hip add, standing heel/toe raises. Manual Therapy: n/a HOME EXERCISE PROGRAM: pt given written HEP including: AP, isometric hip add, LAQ, seated hip flex. - Charges Timed Code Treatment Minutes: 49 Total Treatment Time: 61 Procedures billed for this date of service:: eval med, ex EVALUATION COMPLEXITY LEVEL EVALUATION COMPLEXITY LEVEL: HISTORY: Medium (HTN, COPD, OA, DJD), EXAM OF BODY SYSTEMS: Medium (strength, ataxic gait, balance, posture, ), CLINICAL PRESENTATION: Medium, CLINICAL DECISION MAKING: Medium Assessment Assessment: pt presents with cervical pain with radicular symptoms in BUE with decreased sensation, proprioception which is being addressed by OT. pt also with ataxic gait, decreased strength BLE, decreased balance and gait speed limiting functional mobility. Patient Education: Activity Modification, Education of Plan of Care Rehab Potential: Good Short Term Goals Goal #1: pt amb in dept stepping over/around obstacles with no LOB. Goal to be met by: 05/07/18 Goal #2: pt with improved strength BLE 4 to 4+/5 Goal to be met by: 05/07/18 Goal #3: Improve dyn stand balance as noted by dyn gait index of Goal to be met by: 05/07/18 Goal #4: pt independent with initial HEP Goal to be met by: 05/07/18 Um Nurse Goals Goal #1: pt report no falls since eval Goal to be met by: 05/21/18 Goal #2: pt with improved dyn stand balance as noted by dyn gait index Goal to be met by: 05/21/18 Goal #3: Improve gait speed 0.8m/s to decrease risk of falls. Goal to be met by: 05/21/18 Plan - Treatment to be Provided Procedures: Therapeutic Exercises, Therapeutic Activity, Gait Training, Neuromuscular Rehab, Patient Education Modalities: No Modalities - Treatment Plan Frequency: 2 X week Duration: 4 weeks Dates of Jail Goals: 05/21/18 Expiration date of current Insurance Approval:: n/a - Treatment Code (1) Ataxic gait Code(s): R26.0 - ATAXIC GAIT (2) Impairment of balance Code(s): R26.89 - OTHER ABNORMALITIES OF GAIT AND MOBILITY (3) Muscle weakness Code(s): M62.81 - MUSCLE WEAKNESS (GENERALIZED)
--- NOTE | 2018-04-23 14:48 | RS.OTEVAL ---
Subjective Date of Note: 04/21/18 Visit #: 1 Number of visits approved by Insurance: [id number] Date of Evaluation: 04/21/18 Payer Source: MEDICARE Date of Onset/Injury/Change in Status: 12/28/17 Surgery Performed?: No Treatment Diagnosis: Left hand weakness, Ataxia Treatment Side (optional): Left *Precautions: At risk for falls, Ataxia Prior Level of Function.....Patient was independent with: ADL's, Self Care, Work /Vocation, Caregiving, Ambulation/Mobility, Community Integration/Access History of Condition/Mechanism of Injury: Pt reported in December she fell of the porch and landed on her left shoulder. Pt reported since the fall off of the porch she has had numbness of the Left hand and her coordination has been impaired where she is not able to complete simultaneous coordinated movements of the BUE. Patient's coordination and proprioception are impaired. Pt missed 1/ 4 objects tested for stereognosis. Pt has impaired fine motor coordination due to the impairments of sensation and coordination. Pt has difficulty ambulating into the therapy gym. Pt has difficulty with all ADLS and is not able to cook, complete cleaning, driving, or going out into the community due to these difficulties. Level of Function: Pt is not able to cook, drive, complete her self care independently or safely due to the weakness, impaired proprioception and impaired coordination. Current Complaints/Gains: Pt has numbness of the ulnar aspect of the left hand and this radiates up into the posterior scapula. Pt has mild atrophy of the left infraspinatus. Pt has difficulty with BUE shoulder abduction with increased pain of 8/10. Pt complains of not being able to do anything. Pt reports she is not able to cook, cut up food, or drive due to the coordination. Pt reports she has difficulty washing her hands and rubbing her hands together. Pt has had to turn the bills over to her and he is doing the cooking too. Pt reports difficulty with folding clothes, and doing the washer and dryer. Pt reports her hands fatigue and then the numbness increases. Medical History Medical History: Hypertension, COPD Medical History Comments:: anxiety, seizures, per xray: chronic discogenic degenerative disease Surgical History: Knee Replacement, Cholecystectomy, Hysterectomy Smoking Status: Current some day smoker Hx Home Medications: Esomeprazole Magnesium, Amlodipine Besylate, Ropinirole HCl , Estrogens conjugated, Albuterol Sulfate, Losartan/Hydrochlorothiazide, Oxycodone HCl, Alprazolam (Xanax), Phenobarbital, Lexapro, Patient's Goals: To get the feeling in the LUE and coordination of BUE back. Pt wants her neck pain and limited motion to improve. Pain Assessment - Pain Description Pain Description: Radiating, Sharp Pain Location: Left side of neck from the shoulder up into her neck. Pain Description: It runs from the shoulder up the back of the neck. Current Pain Intensity: 4 Worst Pain Intensity: 10 Functional Outcome Measures UE Functional Index: 67 - G Codes & Severity Modifier G Codes: 67.5% Impaired = CL is current. Goal is CH Source of G Code score: Carry, Moving, and Handling. Observation - Observation Posture: Forward Head Handedness: Right Shoulder ROM: Right WFL's Shoulder Muscle Strength: Right WFL's - Left Shoulder ROM Left Shoulder Flexion: 120 Left Shoulder Extension: 55 Left Shoulder Abduction: 90 (with pain in the posterior scapula) Left Shoulder External Rotation: 45 Left Shoulder ROM Limitations: Muscle Weakness Audograph Operator Strength Left Hand Audograph Operator Strength: 22 Right Hand Audograph Operator Strength: 29 Dynamometer Testing Position: 2nd Position Palpation Palpation Findings: Tenderness Sensation Left Upper Extremity: Intact/Normal Sensation Description: Numbness Comments: Pt is able to identify the smallest monofilaments ( 2.83 level ) however she appears to have numbness and impaired proprioception and impaired coordination. This is indicative of the ventral horn area of the spinal cord and implies possible impingement. Therefore occupational therapy is requesting patient to be seen by a neurologist for further assessment. Pt appeared to have some mild atrophy in the left infraspinatus and numbness. Coordination - Tests Left Finger Opposition: Normal/Intact Finger to Nose: Mild Deviation Comments: overshooting Interventions - Exercise/Activities Exercise/Activities/Manual Therapy: No exercises given due to problems found. HOME EXERCISE PROGRAM: No program given at this time. - Charges Timed Code Treatment Minutes: 60 Total Treatment Time: 60 Procedures billed for this date of service:: Evaluation medium. EVALUATION COMPLEXITY LEVEL: HISTORY: Medium, EXAM OF BODY SYSTEMS: Medium, CLINICAL DECISION MAKING: Medium Assessment Assessment: OT asking for patient to be seen by a neurologist for further assessment. Patient Education: Education of diagnosis, Body/Joint mechanics, Education of Plan of Care Rehab Potential: Good Problems/Comments: Numbness of Left hand ulnar aspect up into the left shoulder. Pain with abduction of LUE. Pain in the neck with rotation to the right. Short Term Goals Goal #1: Pt to have full ABD of LUE without pain Goal to be met by: 05/07/18 Goal #2: Pt to increase LUE strength to 4/5. Goal to be met by: 05/07/18 Goal #3: Pt to have improved LUE coordination to be intact. Goal to be met by: 05/07/18 Goal #4: Pt pain to decrease to 2-3/10 in LUE, shoulder and neck. Goal to be met by: 05/07/18 [facility] Goals Goal #1: Pt to have full AROM of LUE without pain. Goal to be met by: 05/21/18 Goal #2: Pt to increase LUE strength to 4+/5. Goal to be met by: 05/21/18 Goal #3: Pt to be able to wash her hands independently. Goal to be met by: 05/21/18 Goal #4: Pt pain to decrease to 0/10 in LUE, shoulder and neck. Goal to be met by: 05/21/18 Plan - Treatment to be provided Procedures: Therapeutic Exercises, Therapeutic Activity, Neuromuscular Rehab, Manual Therapy, Patient Education Modalities: Electrical Stimulation, Ultrasound/Phonophoresis, Class IV Laser, Mechanical Traction - Treatment Plan Frequency: 3 X week Duration: 4 weeks Dates of [facility] Goals: 05/21/18 Expiration date of current Insurance Approval:: 05/21/18 - Treatment Code (1) Impaired coordination of upper extremity Code(s): R27.8 - OTHER LACK OF COORDINATION Comments: R27.8 Impaired coordination (2) Impaired proprioception Code(s): R29.818 - OTHER SYMPTOMS AND SIGNS INVOLVING THE NERVOUS SYSTEM Comments: R29.818 Impaired proprioception (3) Shoulder pain, left Code(s): M25.512 - PAIN IN LEFT SHOULDER Comments: M25.512 Pain in left shoulder
--- NOTE | 2018-04-23 15:44 | RS.OPPTDN ---
Subjective Date of Note: 04/23/18 Visit #: 2 Number of visits approved by Insurance: NA Date of Evaluation: 04/21/18 Payer Source: MEDICARE Treatment Diagnosis: Leg weakness, hand weakness, ataxia Current Subjective/complaints:: Patient reports she is weak and is wobbly at times. States she is unable to perform housework and other light ADL's. *Precautions: At risk for falls, Ataxia Interventions - Exercise/Activities/Manual Therapy Exercises/Activities: In supine, AP and isometric hip add with ball. Alt hip flexion with 3#, and SAQ 3#. SLR and hip abd with assist. Seated hip flex and LAQ. In standing, marching, toe-ups, and mini-squats. Discussion of safety with home and community ambulation, and advised to perform standing exercises at kitchen counter for safety. Total minutes of Exercise: 34mins Manual Therapy: n/a HOME EXERCISE PROGRAM: pt given written HEP including: AP, isometric hip add, LAQ, seated hip flex. Alt hip flexion and SLR. Standing at kitchen counter for marching, toe-ups, and mini-squats. - Charges Timed Code Treatment Minutes: 34mins Total Treatment Time: 37mins Procedures billed for this date of service:: EX2 Assessment: Patient motivated to work on exercises to improve strength and balance. Patient Education: Home Exercise Program, Home Safety, Activity Modification Comments: Discussed safety and HEP. Patient given copies of HEP. Patient demonstrates compliance with HEP?: Yes Short Term Goals Goal #1: pt amb in dept stepping over/around obstacles with no LOB. Goal to be met by: 05/07/18 Goal #2: pt with improved strength BLE 4 to 4+/5 Goal to be met by: 05/07/18 Goal #3: Improve dyn stand balance as noted by dyn gait index of Goal to be met by: 05/07/18 Goal #4: pt independent with initial HEP Goal to be met by: 05/07/18 Progress towards Goal:: Progressing Acid Painter Goals Goal #1: pt report no falls since eval Goal to be met by: 05/21/18 Goal #2: pt with improved dyn stand balance as noted by dyn gait index Goal to be met by: 05/21/18 Goal #3: Improve gait speed 0.8m/s to decrease risk of falls. Goal to be met by: 05/21/18 Plan Dates of Correction Goals: 05/21/18 Expiration date of current Insurance Approval:: 05/21/18 PLAN: Progress with exercise and balance work to improve balance and increase functional activity level.
--- NOTE | 2018-04-27 16:31 | RS.CXNS ---
Date of scheduled appointment: 04/27/18 Type: Cancel (Patient cancelled appointment today due to being sick. Plans to keep appointment later this week.)
--- NOTE | 2018-04-30 13:52 | RS.OPPTDC ---
Date of Discharge: 04/23/18 Date of Evaluation: 04/21/18 Number of Visits: 2 Treatment Diagnosis: Leg weakness, hand weakness, ataxia Current Level of Function: Same as eval, no change. pt with decreased balance, LE strength as well as decreased sensation BUE. Balance scores unchanged from eval. Current Complaints/Gains: pt's dtr called to cancel PT at this time due to pt with appt scheduled with specialist in [place] and wanted to wait and see what happens. Functional Outcome Measure - G Codes & Severity Modifier G Codes & Modifier: n/a Source of G Code score: n/a Observation - Observation Posture: Forward Head, Rounded Shoulders, Increased Thoracic Kyphosis Handedness: Right Gait - Gait Pattern Gait Comments: pt amb with flexed posture, decreased step length, as well as deviates from path Interventions - Exercise/Activities/Manual Therapy Exercises/Activities: n/a Manual Therapy: n/a HOME EXERCISE PROGRAM: pt given written HEP including: AP, isometric hip add, LAQ, seated hip flex. Alt hip flexion and SLR. Standing at kitchen counter for marching, toe-ups, and mini-squats. - Charges Timed Code Treatment Minutes: n/a Total Treatment Time: n/a Procedures billed for this date of service:: n/a Assessment Assessment: pt continues with deficits present on eval. pt only seen for eval and 1 more visits. pt/family have D/C'd PT awaiting visit with specialist. No goals met Patient Education: Activity Modification, Education of Plan of Care Rehab Potential: Good Short Term Goals Goal #1: pt amb in dept stepping over/around obstacles with no LOB. Goal to be met by: 05/07/18 Progress towards Goal:: Not Met Goal #2: pt with improved strength BLE 4 to 4+/5 Goal to be met by: 05/07/18 Progress towards Goal:: Not Met Goal #3: Improve dyn stand balance as noted by dyn gait index of Goal to be met by: 05/07/18 Progress towards Goal:: Not Met Goal #4: pt independent with initial HEP Goal to be met by: 05/07/18 Progress towards Goal:: Not Met Custodial Goals Goal #1: pt report no falls since eval Goal to be met by: 05/21/18 Progress towards goal: Not Met Goal #2: pt with improved dyn stand balance as noted by dyn gait index Goal to be met by: 05/21/18 Progress towards goal: Not Met Goal #3: Improve gait speed 0.8m/s to decrease risk of falls. Goal to be met by: 05/21/18 Progress towards goal: Not Met Plan Reason for Discharge:: Family request
--- NOTE | 2018-04-30 14:12 | RS.OTQKDC ---
OT Discharge Date of Discharge: 04/30/18 Number of Visits: 1 Reason for Discharge: Pt was placed on hold by occupational therapy due to possible further injury and OT recommending patient for neuro consult. OT discharging patient at this time for further testing.
== END 2018-05-13 23:59 ==
PROVIDERS: ATTEND Internal Medicine
DX: R26.0 Ataxic gait (principal); R26.89 Other abnormalities of gait and mobility; M62.81 Muscle weakness (generalized)

== ENCOUNTER 2018-06-17 14:34 | Outpatient (CLI) | END 2018-06-17 14:35 | disposition home or self-care (01) | LOC: LAB 14:34 | PROVIDERS: ATTEND Internal Medicine | DX: E87.5 Hyperkalemia (principal) | CPT/HCPCS: 36415; 80053; 84132 ==

== ENCOUNTER 2018-06-22 13:27 | Outpatient (CLI) | END 2018-06-22 13:28 | disposition home or self-care (01) | LOC: LAB 13:27 | PROVIDERS: ATTEND Internal Medicine | DX: D64.9 Anemia, unspecified (principal); E87.5 Hyperkalemia | CPT/HCPCS: 36415; 80053 ==

== ENCOUNTER 2018-07-01 13:47 | Emergency (ER) ==
[2018-07-01 14:01] VITALS: BP 136/65; TEMP 98.6; BMI 21.2
--- NOTE | 2018-07-01 15:09 | ED.PDOC ---
General ED Provider: Dr. DENNIS KENNEDY Chief Complaint: Headache Stated Complaint: neck and head hurting with muscular stiffness Time Seen by Physician: 14:00 Mode of Arrival: Walk-In Information Source: Patient Exam Limitations: No limitations Primary Care Provider: NIALL MARINELLI Nursing and Triage Documentation Reviewed and Agree: Yes Does patient meet sepsis criteria?: No System Inflammatory Response Syndrome: Not Applicable Sepsis Protocol: For patient's 13 years and over: Temp is 96.8 and below OR 101 and greater Pulse >90 BPM Resp >20/minute Acutely Altered Mental Status Are patient's symptoms suggestive of a new infection, such as: -Pneumonia -Skin, Soft Tissue -Endocarditis -UTI -Bone, Joint Infection -Implantable Device -Acute Abdominal Infection -Wound Infection -Meningitis -Blood Stream Catheter Infection -Unknown Musculoskeletal Complaint Exam - Neck Pain Complaint/Exam Onset/Duration: today Symptoms Are: Still present Timing: Intermittent Episodes Lasting: Hours Initial Severity: Moderate Current Severity: Moderate Location: Reports: Discrete Character: Reports: Aching Aggravating: Reports: Movement Alleviating: Reports: Position Associated Signs and Symptoms: Reports: Weakness. Denies: Headache Related History: Reports: Similar episode Meningitis Risk Factors: Reports: None Related Surgical History: Reports: None Carotid Bruit Present: No Pain on Passive Flexion: No Positive Kernig's Sign: No ROM Limited In: Present: Rotation Tenderness: Present: Paraspinal Focal Weakness: Present: None Focal Sensory Loss: Reports: None Nexus Low Risk Criteria: No post-midline CS tender, No evidence of intoxicat., No Altered LOC, No focal neuro deficit Differential Diagnoses: Arthritis, Dystonia, Sprain, Strain Review of Systems - Review Of Systems Constitutional: Reports: Malaise, Other Ears, Nose, Mouth, Throat: Reports: No symptoms Respiratory: Reports: No symptoms Cardiac: Reports: No symptoms GI: Reports: No symptoms : Reports: No symptoms Musculoskeletal: Reports: Muscle pain, Muscle stiffness Skin: Reports: No symptoms Neurological: Reports: No symptoms Endocrine: Reports: No symptoms Hematologic/Lymphatic: Reports: No symptoms All Other Systems: Reviewed and Negative Past Medical History - Past Medical History Previously Healthy: No Endocrine: Reports: None Cardiovascular: Reports: Hypertension Respiratory: Reports: COPD Hematological: Reports: None Gastrointestinal: Reports: GERD Genitourinary: Reports: None Neuro/Psych: Reports: Seizure, Anxiety Musculoskeletal: Reports: None Cancer: Reports: None Last Menstrual Period: unknown - Surgical History General Surgical History: Reports: Hysterectomy, Cholecystectomy, Orthopedic ( Right knee), Other (Polyp removal from colon, cataract, eyelids) - Family History Family History: Reports: Unknown - Social History Smoking Status: Current every day smoker, Heavy tobacco smoker Hx Substance Use: No Alcohol Screening: None Physical Exam - Physical Exam Appearance: Ill-appearing Ill-appearing: Mild Pain Distress: Mild Eyes: Conjunctiva pale ENT: Ears normal Neck: Supple Respiratory: Airway patent Cardiovascular: RRR GI/: Soft Musculoskeletal: Normal strength Neurological: Sensation intact Critical Care Note - Critical Care Note Total Time (mins): 0 Course - Course Orders, Labs, Meds: Orders Category Date Time Status IV [ED IV/MEDIPORT/POWERPORT] .ONCE EMERGENCY 07/01/18 15:14 Active 0.9 % Sodium Chloride [Saline Flush] MEDS 07/01/18 15:14 Active 1 syr IVF PRN PRN Ketorolac Tromethamine [Toradol] MEDS 07/01/18 15:14 Discontinued 30 mg IVP ONCE STA Medications Generic Name Dose Route Start Last Admin Trade Name Freq PRN Reason Stop Dose Admin Sodium Chloride 1 syr 07/01/18 15:14 07/01/18 15:49 Saline Flush IVF 1 syr PRN PRN Administration To flush IV Discontinued Medications Generic Name Dose Route Start Last Admin Trade Name Freq PRN Reason Stop Dose Admin Ketorolac Tromethamine 30 mg 07/01/18 15:14 07/01/18 15:47 Toradol IVP 07/01/18 15:15 30 mg ONCE STA Administration Vital Signs: Temp Pulse Resp BP Pulse Ox 07/01/18 13:50 98.6 F 80 20 136/65 95 Departure - Departure Time of Disposition: 16:40 Disposition: HOME SELF-CARE Discharge Problem: Migraine Instructions: Acute Headache (ED), Cluster Headache (ED), Migraine Headache (ED ) Condition: Good Pt referred to PMD for follow-up: Yes IPMP verified?: No Allergies/Adverse Reactions: Allergies ciprofloxacin [From Cipro] Adverse Reaction (Verified 07/01/18 14:01) imipramine [From Tofranil] Adverse Reaction (Verified 07/01/18 14:01) latex Adverse Reaction (Verified 07/01/18 14:01) Penicillins Adverse Reaction (Verified 07/01/18 14:01) phenytoin [From Dilantin] Adverse Reaction (Verified 07/01/18 14:01) tramadol Adverse Reaction (Verified 07/01/18 14:01) BANDAIDES Adverse Reaction (Uncoded 11/16/17 22:31) Home Medications: Ambulatory Orders Amlodipine Besylate 1 tab PO BID 09/14/13 Esomeprazole Magnesium [Nexium] 1 tab PO BID PRN 09/14/13 Ropinirole HCl [Requip] 1 tab PO BEDTIME 09/14/13 Estrogens, Conjugated [Premarin] 0.625 mg PO BEDTIME 08/03/15 Albuterol Sulfate [Proair Hfa] 2 puff IH Q6H PRN 08/31/15 Diclofenac Sodium 75 mg PO DAILY 08/31/15 Losartan/Hydrochlorothiazide [Losartan-Hctz 100-25 mg Tab] 1 each PO DAILY 08/30 Oxycodone HCl/Acetaminophen [Percocet 7.5-325 mg Tablet] 1 each PO BID 08/31/15 Alprazolam [Xanax] 2 tab PO BEDTIME 11/16/17 Phenobarbital 100 mg PO BEDTIME 11/16/17 Ipratropium/Albuterol Sulfate [Combivent Respimat Inhal [place]] 1 spray IH DAILY 12/25/17 Escitalopram Oxalate [Lexapro] 10 mg PO DAILY 07/01/18 Potassium Chloride 20 meq PO DAILY 07/01/18 Disposition Discussed With: Patient, Family
[2018-07-01] MEDS: TORADOL IVP STA (15:47)
== END 2018-07-01 17:05 | disposition home or self-care (01) ==
LOC: ED 13:47
DX: G43.909 Migraine, unspecified, not intractable, without status migrainosus (principal); F17.210 Nicotine dependence, cigarettes, uncomplicated
CPT/HCPCS: 96374; 99283

== ENCOUNTER 2018-07-06 12:21 | Inpatient (IN) ==
[2018-07-06] MEDS ORDERED: DILAUDID 1 MG/ML SYRINGE IVP PRN (13:04)
[2018-07-06] MEDS ORDERED: DEXTROSE 5%-1/2NS IV SOLUTION 1,000 ML IV SCH (13:30)
[2018-07-06] MEDS ORDERED: NON-FORMULARY MEDICATION (Albuterol Sulfate [Proair Hfa] 2 PUFF) IH PRN (13:35)
[2018-07-06] MEDS ORDERED: ACETAMINOPHEN 500 MG PO PRN (13:35)
[2018-07-06] MEDS ORDERED: ALBUTEROL SULFATE 0.083% INH PRN (13:35)
[2018-07-06] MEDS ORDERED: SODIUM CHLORIDE 1,000 ML IV SCH (16:00)
--- NOTE | 2018-07-06 16:05 | DI ---
Exam: Chest two-view HISTORY: Bronchitis. Comparison: 12/30/2017. FINDINGS: Two views of the chest demonstrate hyper expanded lungs with no evidence of pneumonia or e khurram. The cardiac silhouette is mildly enlarged. The thoracic aorta is partially calcified. Calcif ied granulomata are noted. The pulmonary vasculature is not congested. The skeletal structures are intact. There are degenerative findings in the spine. IMPRESSION: No acute cardiopulmonary disease. Hyperexpanded lungs suggest underlying COPD. Atherosclerosis.
[2018-07-06 16:13] VITALS: TEMP 97.9; BMI 21.4
--- NOTE | 2018-07-06 16:27 | MRI ---
EXAM: MRI brain without IV contrast. DATE: 06 July 2018. HISTORY: Dizziness, headache, neck pain. TECHNIQUE: Sagittal T1W, axial T2W, axial FLAIR, axial T1W, axial DWI, axial MIP, axial SWI, and cor onal T2W GRE sequences of the brain were obtained using 1.2 Ana magnet. No IV contrast. COMPARISON: CT head 03/24/2018. MRI C-spine 06 July 2018. FINDINGS: The ventricles, cisterns, sulci and subarachnoid spaces overlying the superior vertex of t he brain are somewhat prominent due to involutional change. No midline shift, mass effect or abnorma l extra-axial fluid collection is apparent. DWI bright subcentimeter foci are demonstrated within th e left occipital lobe, right occipital cortex, posterior right temporal lobe, bilateral frontal and p arietal subcortical white matter/cortex. No acute hemorrhage or neoplasm is identified. Narrow/smal l confluent rim of T2W/FLAIR hyperintensity is observed in the white matter abutting each lateral ricardo tricle, and is more prominent near the atrium bilaterally (left greater than right). Small number of 2- 20 mm, T2W/FLAIR bright foci are scattered within the block radiata, centrum semiovale and espec ially the subcortical white matter bilaterally. Cortical T2W bright, areas of bilateral occipital lo be, bilateral parietal lobe, and left frontal lobe are consistent with old infarcts. The alves - whit e matter differentiation is normal. A central area of pontine T2W/FLAIR bright signal is also displa yed. The 7th/8th cranial nerve complexes, cerebellopontine angles, and visible cervical spinal cord are normal. There is no cerebellar tonsillar ectopia. The pituitary gland is small in size. Corpus callosum is normal in size, but the body is bowed upward due to ventricular prominence. Flow voids are present in the major intracranial arteries and in the dural venous sinuses. No aneurysm, AVM or dural venous sinus thrombosis is apparent. Appearance of the lens of each eye is suspicious for prev ious cataract surgery. No other orbit abnormality is identified. A small number of right mastoid ai r cells clustered inferolaterally demonstrate T2W bright, T1W intermediate signal. Left mastoid air cells are unremarkable. Frontal sinuses are hypoplastic. There is no acute sinusitis. No neck mass or lymphadenopathy is detected. No calvarial neoplasm or acute fracture is evident. Posterior disc /osteophyte complex causes marked central canal stenosis at C3-4. IMPRESSIONS: 1. Acute, nonhemorrhagic infarcts in bilateral occipital, frontal, and parietal lobes. Considering central embolic event. No current midline shift or herniation. 2. Old infarcts in both occipital lobes, both parietal lobes and left frontal lobe. 3. No acute hemorrhage, intra-axial neoplasm or hydrocephalus. 4. Mild/moderate cerebral and mild brainstem leukomalacia. DDX: Small vessel disease or chronic hy pertensive encephalopathy is likely. 5. Mild/moderate central > peripheral cerebral atrophy. Mild cerebellar atrophy. 6. Slightly small pituitary gland - partially empty sella. 7. Mild right mastoid disease - mastoiditis vs effusion. 8. C3-4 disc bulge and marked central canal stenosis. Critical result: Report called to [facility] nurse gifford (Vicky) 1613 hrs, 07/06/2018.
--- NOTE | 2018-07-06 16:42 | MRI ---
EXAM: MRI cervical spine without IV contrast. DATE: 06 July 2018. HISTORY: C-spine osteoarthritis. TECHNIQUE: Sagittal and axial T1W and T2W sequences of the cervical spine along with sagittal IR and coronal T2W sequences were obtained using 1.2 Ana magnet. No IV contrast. COMPARISON: MRI brain [address] C-spine 03/24/2018. FINDINGS: Minor/mild rightward curvature the mid cervical spine is observed. No acute c-spine fract ure, subluxation, osseous malignancy, or jumped facet is apparent. Cervical vertebra are normal in h eight. T1W bone marrow signal is heterogeneously bright. Small/moderate osteophytes are visible at C5-6 and C6-7. Mild C3-4, moderate C5-6, and marked C6-7 disc space narrowing is detected. Cervical spinal cord is flattened anteriorly at C3-4. No syrinx, cord edema, myelomalacia, or neoplasm is re vealed. Visible brainstem reveals areas of central T2W/IR hyperintensity similar to MRI brain on the same day . There is no Chiari 1 malformation. Minor cerebral atrophy is noted. Pituitary gland is somewhat small in size, with CSF filling part of the pituitary fossa. Small number of right mastoid air cells have T2W bright signal consistent with mastoiditis or mastoid effusion. No thyroid, submandibular, or parotid gland neoplasm is evident. Trachea, larynx, and epiglottis are unremarkable. No suspicio us neck mass, cervical lymphadenopathy, apical lung mass, pneumonia, or pleural effusion is demonstra bruna. T2W bright, T1W dark, a 8.6 mm subcutaneous nodule is present in the right paramidline lower ne ck at the C6 spinous process level. Segmental analysis: C2-3: Broad posterior disc/osteophyte complex (2.2 mm AP) does not contact the cord. Canal is 9.7 m m AP. Minor right foraminal narrowing is due to uncinate hypertrophy. C3-4: Broad posterior disc/osteophyte complex (4.4 mm AP) flattens the cord anteriorly. There is al so mild ligamentum flavum hypertrophy. Canal is 5.2 mm AP. Marked right and moderate left foraminal stenoses due to uncinate hypertrophy and mild left facet arthropathy. C4-5: Broad posterior disc/osteophyte complex (2.2 mm AP) does not contact the cord. Canal is 9 mm AP. Minor/mild right and moderate left foraminal stenoses due to uncinate hypertrophy and mild left facet arthropathy. C5-6: Broad posterior disc/osteophyte complex (2.8 mm AP) flattens the cord anteriorly. Canal is 7. 8 mm AP. Mild/moderate bilateral foraminal stenoses due to uncinate hypertrophy and minor facet dise ase. C6-7: Broad posterior disc/osteophyte complex (2.3 mm AP) flattens the cord anteriorly. Canal is 7. 8 mm AP. Mild/moderate right and mild left foraminal stenoses due to uncinate hypertrophy and minor facet arthropathy. C7-T1: Normal, except for minor bilateral facet arthropathy. T1-2: Normal. IMPRESSIONS: 1. C-spine mild spondylosis, minor rightward curvature, mild facet arthropathy, and multilevel DDD. 2. Multilevel central canal stenoses (C2-3: Mild. C3-4: Severe. C4-5: Marked. C5-6: Moderate. C6 -7: Moderate). 3. Multilevel cervical cord flattening. No syrinx or myelomalacia. 4. Multilevel cervical foraminal stenoses as described. 5. Fatty marrow infiltration - consider osteopenia. 6. Mild right mastoid effusion vs mastoiditis. 7. Small pituitary gland - partially empty sella. 8. Pontine leukomalacia - likely small vessel disease. 9. Benign-appearing subcutaneous nodule posterior lower neck.
[2018-07-06] MEDS ORDERED: ESOMEPRAZOLE MAGNESIUM PO SCH (17:00)
[2018-07-06] MEDS ORDERED: PLAVIX PO STA (17:50)
[2018-07-06] MEDS ORDERED: PLAVIX ONE (17:52)
[2018-07-06] MEDS ORDERED: ROPINIROLE HCL PO SCH (21:00)
[2018-07-06] MEDS ORDERED: OXYCODONE HCL PO SCH (21:00)
[2018-07-06] MEDS ORDERED: PHENOBARBITAL 100 MG PO SCH (21:00)
[2018-07-06] MEDS ORDERED: ALPRAZOLAM PO SCH (21:00)
[2018-07-06] MEDS ORDERED: AMLODIPINE BESYLATE PO SCH (21:00)
[2018-07-06] MEDS ORDERED: [UNRECOGNIZED DRUG - OTHER] PO SCH (21:00)
[2018-07-06] MEDS ORDERED: ACETAMINOPHEN PO SCH (21:00)
[2018-07-07] MEDS ORDERED: IPRATROPIUM IH SCH (09:00)
[2018-07-07] MEDS ORDERED: [UNRECOGNIZED DRUG - OTHER] IH SCH (09:00)
[2018-07-07] MEDS ORDERED: NON-FORMULARY MEDICATION (Potassium Chloride [Potassium Chloride] 20 MEQ) PO SCH (09:00)
[2018-07-07] MEDS ORDERED: NON-FORMULARY MEDICATION (Cetirizine Hcl [Cetirizine Hcl] 10 MG) PO SCH (09:00)
[2018-07-07] MEDS ORDERED: ESTRADIOL 1 MG PO SCH (09:00)
[2018-07-07] MEDS ORDERED: ALBUTEROL SULFATE IH SCH (09:00)
[2018-07-07] MEDS ORDERED: NON-FORMULARY MEDICATION (Diclofenac Sodium [Diclofenac Sodium] 75 MG) PO SCH (09:00)
[2018-07-07] MEDS ORDERED: DOCUSATE SODIUM 100 MG PO SCH (09:00)
[2018-07-07] MEDS ORDERED: NON-FORMULARY MEDICATION (Tiotropium Br/Olodaterol Hcl [Stiolto Respimat Inhal Spray] 1 PU INH SCH (09:00)
[2018-07-07] MEDS ORDERED: NON-FORMULARY MEDICATION (Losartan/Hydrochlorothiazide [Losartan-Hctz 100-25 Mg Tab] 1 EAC PO SCH (09:00)
--- NOTE | 2018-07-07 12:37 | DS ---
DATE OF SERVICE: 07/06/18 FINAL DIAGNOSIS: 1. Acute nonhemorrhagic infarcts involving occipital frontal parietal lobes 2. 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 Neck pain 4. Headaches likely from C spine Osteoarthritis followed by Dr. Ly 5. Seizure disorder more than 40 years well controlled on Phenobarbital last seizure 20 years ago. 6. 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 History of heavy smoking with severe chronic lung disease followed by Dr. Celestin 8. Vitamin B 12 deficiency 9. Severe DJD of the spine 10. Restless leg syndrome 11. Generalized anxiety disorder 12. Cervical radiculopathy 13. Ataxia with generalized weakness. DISCHARGE INSTRUCTIONS: Transfer to [facility]. MEDICATIONS AT DISCHARGE: Percocet 7.5mg twice a day ProAir HFA PRN Combivent inhaler two puffs twice a day Requip 1mg PO HS Hyzaar 125mg PO daily Amlodipine 5mg twice a day Stiolto Respimat from Dr. Celestin Phenobarbital 100mg PO daily Nexium 40mg twice a day Estradiol 1mg daily given by Dr. Whitney OBGYN Cetirizine daily Xanax 0.25mg twice times at night Nebulizer treatment as needed with Albuterol Coated aspirin one a day SMOKING: Current everyday smoker. HOSPITAL COURSE: 78 year old white female was seen in the office on the morning of 07/06/18 when she came in with complaint of having neck pain and headache as usual which has been going on for past several months. The patient has been at [facility] a few days ago with headache. The patient was up and about and walked in the office with her and son. On physical exam the patient's neurological status was normal. Her skin was dry and she looked dehydrated. She was hospitalized under observation with IV fluids. MRI of the head and C spine was ordered. MRI with contrast reported as acute nonhemorrhagic infarcts in bilateral occipital frontal and parietal lobe. The source likely could be central meaning heart. The patient was on telemetry for several hours prior to her transfer. She stayed in sinus rhythm. EKG shows as usual sinus rhythm with bundle branch block with RVH with strain pattern unchanged from the one done a few months ago. Neurologist services were called at [facility] and the Hospitalist services and transfer was acceptable. The patient's condition and neurological status at the time of transfer was stable. The patient is also followed by Dr. Constantino Neurologist, Dr. Celestin Lung specialist. CT scan of the head with contrast and without contrast done on 11/16/17, 12/25/17, 03/24/18 showed chronic small vessel ischemic disease. The patient also has a lot of underlined psychosomatic problems. She is also followed by [employer]/ Oncologist Dr. Lopez and pulmonary physician Dr. Celestin. tooling specialist Dr. Ly. TIME SPENT: More than 60 minutes. [facility]
--- NOTE | 2018-07-07 13:49 | HP ---
DATE OF SERVICE: 07/06/18 REASON FOR HOSPITALIZATION/HISTORY OF PRESENT ILLNESS: Complains of neck pain 2 to 8 on scale of 1-10. Waiting to hear from Dr. Ly for MRI of C-spine. Complains of headache and neck. Went to ER at [facility] 07/01/18 was given a shot. She has lost 15 pounds in one year. Not eating well. She is weak, no symptoms of CHF and CAD. PAST MEDICAL HISTORY: Right bundle branch block COPD Ataxia Anemia Chronic bronchitis B12 deficiency Hypertension GERD Restless leg syndrome Seizure disorder Chronic sinusitis Hyperkalemia Leg weakness PAST SURGICAL HISTORY: Hysterectomy Gallbladder Colon Knee surgery, right Cataract Eye lid REVIEW OF SYSTEMS: CONSTITUTIONAL: No fever, Fatigue. HEENT: No sinus drainage, no sore throat. RESPIRATORY: No cough, no congestion. CARDIOVASCULAR: No atypical chest pain for coronary artery disease. No angina , CHF symptoms, palpitations or shortness of breath. GASTROINTESTINAL: No melena or abdominal pain. No GERD. GENITOURINARY: No hematuria, no prostatism, no polyuria. BRICK BURNER HEAD: No blackout, no dizziness,Headache, no double vision. MUSCULOSKELETAL: Osteoarthritis pain, no joint swelling. ENDOCRINE: No weight loss, no weight gain. SKIN: Not dry, no rash. PSYCHIATRIC: Not anxious, no depression, no suicidal thoughts, no homicidal thoughts. SOCIAL HISTORY: Marital Status: . Alcohol Usage: No. Tobacco Usage: Yes. FAMILY HISTORY: Father Mother Brother 2 Sister 1 MEDICATIONS: Potassium Chloride 20meq PO daily Percocet 7.5-325mg PO twice a day Voltaren 75mg Po daily ProAir daily Combivent daily Requip 1mg HS Losartan HCTZ 100/25mg PO daily Amlodipine 5mg PO twice a day Stiolto Respimat daily Phenobarbital 100mg Po daily Nexium 40mg Po twice a day Estradiol 1mg PO daily Cetirizine 10mg PO daily Xanax 0.25mg PO twice a day Stool softner daily NEB treatment 0.083% four times a day Tylenol 500mg two twice a day PRN O2 at HS PRN ALLERGIES: Ciprofloxacin Imipramine Latex Penicillin Phenytoin Tramadol Band-Aides PHYSICAL EXAMINATION: V/S: Pulse 92, blood pressure 122/78, temperature 97.5, pulse 96%. height 5'5, BMI 21.1, Weight 127.2. GENERAL APPEARANCE: Oriented times three. HEENT: Normal. NECK: No JVP, no bruits. RESPIRATORY: Lungs are clear. CARDIOVASCULAR: S1, S2, no S3, no murmurs. No cyanosis, clubbing. No ascites. GI/ABDOMEN: No tenderness. Bowel sounds are active. EXTREMITIES: edema, pulses +1, equal. SKIN: Dry. Mucosa membrane dry. BRICK BURNER HEAD: Deep tendon reflexes, sensory, motor and gait all normal. RECTAL: 11/27 Dr. Alonzo repeat in 5 years/PELVIC: Dr. Magana. Advised yearly. Mammogram 09/28 [facility]. ASSESSMENT: 1. Dehydration 2. Headaches/Neck pain 3. C spine Osteoarthritis 4. History of Seizure disorder 5. Dizziness 6. Chronic sinusitis 7. Hyperkalemia 8. Anemia-Dr. Lopez 9. Left shoulder pain with cervical radiculopathy 10. Leg weakness, hand weakness 11.Ataxia 12.Heart Cath, 11/28 [facility] 13.COPD exacerbation 14.Generalized Weakness 15.Right bundle branch block 16.Chronic bronchitis 17.B12 Deficiency 18.DJD spine Dr. Ly-upcoming appointment to get MRI of neck 19.COPD, Dr. Celestin 20.Hypertension 21.GERD 22.Smoking 23.Restless leg syndrome 24.Oxygen at HS 25.Seizure Disorder 26.Heart Cath, [facility] normal 11/28 PLAN: 1. Admit Observation 2. Diet regular- 3. X-ray chest today 4. Continue all home medication including Phenobarbital 5. Dilaudid 1-2mg IV Q 4 hours for pain 6. 1000cc D5 1/2 normal saline 8 hourly 7. EKG today 8. Telemetry 9. U/A 10.CBC, CMP and T4 today 11.CT scan head with contrast 12.MRI of C-Spine TIME SPENT: More than 70 minutes. [facility]
== END 2018-07-06 18:20 | disposition short-term general hospital (02) | DRG 103 ==
LOC: OBSVTOIN 12:21 → MEDSURG B 12:21
PROVIDERS: ADMIT Internal Medicine; ATTEND Internal Medicine
DX: R51 Headache (principal); I25.2 Old myocardial infarction; I10 Essential (primary) hypertension; M54.2 Cervicalgia; M47.9 Spondylosis, unspecified; M54.12 Radiculopathy, cervical region; M25.512 Pain in left shoulder; M19.90 Unspecified osteoarthritis, unspecified site; E53.8 Deficiency of other specified B group vitamins; E86.0 Dehydration; E87.5 Hyperkalemia; J32.9 Chronic sinusitis, unspecified; J44.9 Chronic obstructive pulmonary disease, unspecified; G40.909 Epilepsy, unspecified, not intractable, without status epilepticus; G25.81 Restless legs syndrome; D46.9 Myelodysplastic syndrome, unspecified; F41.1 Generalized anxiety disorder; R27.0 Ataxia, unspecified; R53.1 Weakness; R42 Dizziness and giddiness; K21.9 Gastro-esophageal reflux disease without esophagitis; Z72.0 Tobacco use
CPT/HCPCS: 36415; 80053; 80184; 84443; 85025; 93005; 93010

== ENCOUNTER → 2018-09-21 | Day surgery (SDC) ==
[~2018-09-21] MED LIST: DIPRIVAN 20 ML VIAL IVP ONE; LIDOCAINE 1% 20 ML MDV ID STA; LIDOCAINE HCL 2% LUER-JET ONE; VERSED ONE
[2018-09-21 10:57] VITALS: TEMP 97.2
[2018-09-21 13:51] VITALS: BP 128/59
--- NOTE | 2018-09-22 11:18 | OP ---
INDICATIONS FOR PROCEDURE: 78 YEAR OLD FEMALE PRESENTS FOR EVALUATION OF WORSENING ANEMIA. SHE HAS HAD A MACROCYTIC ANEMIA WITH A DECREASE OF HER HGB DOWN TO 7.8 IN JULY. IN AUGUST HGB WAS 10.4 WITH MCV OF 103. HER STOOL WERE HEME NEGATIVE. MEDICATIONS: SEE ANESTHESIA NOTES. PROCEDURE: ENDOSCOPY. REPORT: The risks, benefits, alternatives and limitations were discussed in detail with the patient. Informed consent was obtained. After adequate sedation was achieved, the video endoscope was introduced in the posterior pharynx and esophagus under direct vision and easily advanced down to the second portion of the duodenum. I then slowly withdrew the scope in circumferential manner and examining the mucosa quite carefully. I looked on the proximal and distal sides and folds and flexures as best as possible. The duodenal mucosa appeared unremarkable as did the duodenal bulb. The antrum body is relatively unremarkable. The scope was retroflexed to look at the cardia and fundus which was unremarkable. The scope was anteflexed and withdrawn back through the esophagus which was normal. The patient tolerated the procedure well with stable vital signs and pulse oximetry throughout. IMPRESSION: 1. Normal endoscopy exam RECOMMENDATIONS: 1. Anticipate no further GI intervention. She has had heme negative stools. She had a colonoscopy less than two years ago. 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 I believe the risk of stopping her anticoagulation for repeat colonoscopy outweigh the benefits. Especially since her stools are heme negative and her colonoscopy was done less than 2 years ago. 2. We will see her back in the office as needed CC: Dr. Juve BROWNING
== END ==
LOC: SURG 09:13
PROVIDERS: ATTEND Internal Medicine Gastroenterology
DX: D50.9 Iron deficiency anemia, unspecified (principal)

== ENCOUNTER 2018-12-15 13:16 | Outpatient (CLI) ==
--- NOTE | 2018-12-17 11:03 | MAMMO ---
EXAM: Bilateral digital screening mammogram (2-D and 3-D) History: Screening Comparison: Bilateral mammogram 09/23/2017 Findings: MLO and CC views of bilateral breasts demonstrate scattered fibroglandular breast parenchy ma. CAD was reviewed by the radiologist. Tomosynthesis was performed. There are stable benign bila teral breast calcifications. No dominant masses, no suspicious microcalcifications and no architectu ral distortions Impression: Benign stable mammogram. Recommend followup routine screening mammography in 1 year. BI-RADS 2, benign
== END 2018-12-15 13:17 | disposition home or self-care (01) ==
LOC: RAD 13:16
PROVIDERS: ATTEND Internal Medicine
DX: Z12.31 Encounter for screening mammogram for malignant neoplasm of breast (principal)

== ENCOUNTER 2022-07-31 14:53 | Observation (INO) ==
[2022-07-31 16:02] LABS: SARS COV-2 RNA RAPID NAAT NEGATIVE (NEGATIVE)
[2022-07-31] MEDS ORDERED: ATROPINE SULFATE PFS IVP PRN (16:32)
[2022-07-31] MEDS ORDERED: NITROSTAT SL PRN (16:32)
[2022-07-31] MEDS ORDERED: DEXTROSE 50%-WATER ABBOJECT IVP PRN (16:32)
[2022-07-31 16:53] VITALS: BMI 27.3
[2022-07-31] MEDS: SODIUM CHLORIDE 1,000 ML IV SCH (17:10)
[2022-07-31] MEDS ORDERED: VENTOLIN HFA (PER PUFF-WITH SPACER) IH PRN (17:27)
--- NOTE | 2022-07-31 17:52 | DI ---
EXAM: CHEST TWO VIEWS HISTORY: Shortness of breath FINDINGS: Normal cardiac and mediastinal contours. Normal pulmonary vasculature. Lungs are clear. No significant abnormality of the bony thorax. IMPRESSION: Chest radiograph within normal limits.
[2022-07-31 18:58] LABS: BILIRUBIN,URINE Negative (NEGATIVE); CLARITY,URINE Clear (CLEAR); COLOR,URINE Yellow (YELLOW); GLUCOSE, URINE (UA) Negative (NEGATIVE); KETONES,URINE Negative (NEGATIVE); LEUKOCYTE ESTERASE ,URINE Trace (NEGATIVE); NITRITE,URINE Negative (NEGATIVE); PH,URINE 5.5 (5-9); PROTEIN,URINE Negative (NEGATIVE); URINE, BLOOD Negative (NEGATIVE); UROBILINOGEN,URINE 0.2 (0.2)
[2022-07-31] MEDS ORDERED: PHENOBARBITAL 100 MG PO SCH (21:00)
[2022-07-31] MEDS ORDERED: PRILOSEC PO SCH (21:00)
[2022-07-31] MEDS: TYLENOL PO PRN (21:42)
[2022-07-31] MEDS: PHENOBARBITAL PO SCH (21:42)
[2022-07-31] MEDS: ATIVAN PO SCH (21:42)
[2022-07-31] MEDS: NYSTATIN CREAM TP SCH ×2 (21:43→21:52)
[2022-07-31] MEDS: ELIQUIS PO SCH (21:43)
[2022-07-31] MEDS: LIPITOR PO SCH (21:43)
[2022-08-01 05:23] LABS: BASOPHILS % (AUTO) 0.4 % (0.0-3.0); EOSINOPHILS # (AUTO) 1.8 K/ul (0.0-0.7); EOSINOPHILS % (AUTO) 25.4 % (0.0-7.0); HEMATOCRIT 31.9 % (37.0-47.0); HEMOGLOBIN 10.3 g/dl (12.0-16.0); IMMATURE GRANULOCYTE % (AUTO) 0.4 % (0.0-5.0); LYMPHOCYTES # (AUTO) 1.5 K/uL (0.60-3.4); LYMPHOCYTES % (AUTO) 21.1 (10.0-50.0); MEAN CORPUSCULAR HEMOGLOBIN 32.4 pg (27.0-31.0); MEAN CORPUSCULAR HGB CONC 32.3 (31.8-35.4); MEAN CORPUSCULAR VOLUME 100.3 fl (81.0-99.0); MONOCYTES # (AUTO) 0.5 K/uL (0.4-2.0); MONOCYTES % (AUTO) 7.3 (0-10); NEUTROPHILS # (AUTO) 3.1 K/ul (2.0-6.9); NEUTROPHILS % (AUTO) 45.4 % (42.2-75.2); PLATELET COUNT 182 10^3/uL (140-440); RDW COEFFICIENT OF VARIATION 13.5 % (11.6-14.8); RED BLOOD COUNT 3.18 10^6/ul (4.20-5.40); WHITE BLOOD COUNT 6.88 K/ul (4.6-10.2)
[2022-08-01 05:40] LABS: ALANINE AMINOTRANSFERASE 19.8 U/L (0-35); ALBUMIN 3.57 g/dL (3.5-5.0); ALKALINE PHOSPHATASE 182.3 U/L (53-141); ASPARTATE AMINO TRANSFERASE 26.1 U/L (14-36); BILIRUBIN,TOTAL 0.25 mg/dL (0.2-1.3); BLOOD UREA NITROGEN 33.2 mg/dL (7-17); CALCIUM 8.45 mg/dL (8.4-10.2); CARBON DIOXIDE 28.5 mmol/L (22-30.0); CHLORIDE 110.9 mmol/L (98-107); CREATININE 1.39 mg/dL (0.60-1.30); GLUCOSE 80.3 mg/dL (74-106); POTASSIUM 4.36 mmol/L (3.5-5.1); TOTAL PROTEIN 6.2 g/dL (6.3-8.2)
[2022-08-01] MEDS: SODIUM CHLORIDE 1,000 ML IV SCH ×2 (05:41→17:45)
[2022-08-01] MEDS: ANORO ELLIPTA 62.5-25 MCG INH IH SCH (08:19)
[2022-08-01] MEDS: COLACE PO SCH (08:19)
[2022-08-01] MEDS: REQUIP PO SCH (08:20)
[2022-08-01] MEDS: CLARITIN PO SCH (08:20)
[2022-08-01] MEDS: LEXAPRO PO SCH (08:20)
[2022-08-01] MEDS: DYAZIDE PO SCH (08:20)
[2022-08-01] MEDS: MYRBETRIQ PO SCH (08:20)
[2022-08-01] MEDS: PRILOSEC PO SCH ×2 (08:20→16:27)
[2022-08-01] MEDS: NYSTATIN CREAM TP SCH (08:21)
[2022-08-01] MEDS: ELIQUIS PO SCH ×2 (08:21→20:09)
[2022-08-01] MEDS: TYLENOL PO PRN (08:28)
[2022-08-01] MEDS ORDERED: COMBIVENT RESPIMAT INHALER IH SCH (09:00)
--- NOTE | 2022-08-01 14:03 | HP ---
DATE OF SERVICE: 07/31/22 REASON FOR HOSPITALIZATION/HISTORY OF PRESENT ILLNESS: Went to the ER last weekend after fall. Contusion on right side of forehead, laceration on left hand. She is getting weaker and weaker. She has fallen three times in past few weeks. PAST MEDICAL HISTORY/PAST SURGICAL HISTORY: Ataxia Anemia Seizure disorder Chronic kidney disease CVA REVIEW OF SYSTEMS: CONSTITUTIONAL: No fever, no fatigue. Weakness. HEENT: No sinus drainage, no sore throat. RESPIRATORY: No cough, no congestion. CARDIOVASCULAR: No atypical chest pain for coronary artery disease. No angina, CHF symptoms, palpitations or shortness of breath. GASTROINTESTINAL: No melena or abdominal pain. No GERD. GENITOURINARY: No hematuria, no prostatism, no polyuria. FUSION JUNCTURE GRINDER: No blackout, no dizziness, no headache, no double vision. MUSCULOSKELETAL: No osteoarthritis pain, no joint swelling. ENDOCRINE: No weight loss, no weight gain. SKIN: Not dry, no rash. PSYCHIATRIC: Not anxious, no depression, no suicidal thoughts, no homicidal thoughts. SOCIAL HISTORY: Former smoker. No alcohol abuse. with spouse. MEDICATIONS: Albuterol sulfate Phenobarbital Ipratropium Acetaminophen Cetirizine Docusate sodium Tiotropium Triamterene Atorvastatin Levocetirizine Lorazepam Mirabegron Nystatin Pantoprazole Ropinirole Triamcinolone Apixaban Escitalopram ALLERGIES: Ciprofloxacin Imipramine Latex Penicillin Phenytoin Tramadol Band-aides PHYSICAL EXAMINATION: V/S: Pulse ox 98%, temperature 96.4, pulse 66, blood pressure 124/68 GENERAL APPEARANCE: Oriented times three. HEENT: Normal. NECK: No JVP, no bruits. RESPIRATORY: Lungs are clear. CARDIOVASCULAR: S1, S2, no S3, no murmur. No cyanosis, clubbing. No ascites. GI/ABDOMEN: No tenderness. Bowel sounds are active. EXTREMITIES: edema, pulses +1, equal. FUSION JUNCTURE GRINDER: Deep tendon reflexes, sensory, motor and gait all normal. RECTAL/PELVIC: Hysterectomy. ASSESSMENT: 1. Generalized weakness 2. Dehydration 3. Recurrent falls 4. Ataxia 5. Anemia 6. Seizure disorder 7. Chronic kidney disease 8. CVA 9. COPD PLAN: 1. Will admit the patient for dehydration 2. Will need COVID test in drive thru TIME SPENT: More than 75 minutes. MTDD
--- NOTE | 2022-08-01 15:24 | RS.OTINEVL ---
Subjective Patient information Date of Evaluation: 08/01/22 Date of Arrival on Unit: 07/31/22 Admitted From:: Home Diagnosis: Dehydration, weakness, falls PRECAUTIONS: Ataxia, CVA, epilepsy Usual Living Arrangement: Daughter Living Arrangement Comments: staying with daughter while is at [facility]. Home Environment: House and Stairs (few) Medical History: Hypertension and COPD Medical History Comments:: Right bundle branch block, COPD, Ataxia, anemia, Chronic bronchitis, B12 deficiency, HTN, GERD, RLS, seizure disorder, Chronic sinusitis, LE weakness, CVA, Left side impaired coordination LATEX ALLERGY?: No Surgical History: Knee Replacement (right), Cholecystectomy and Hysterectomy Medications: see chart Subjective Information/ Patient Comments:: "I had a stroke." "I don't like the walkers with the seat." Level of function Prior to this admission, the patient could do the following:: Independent Selfcare, Independent ADL's, Independent Ambulation, Perform Brush Holder Inspector/Cooking, Drive and Participated in Social Activities Outside home Current Level of Function: Partially Dependent Current Equipment Used at Home: Rolling Walker, cane Pain Assessment Pain Side: left Pain Location Body Site: Shoulder Pain Aggravating Factors: ADL's and Changing Position Pain Alleviating Factors: Inactivity and Position Change Interventions Objective Patient Orientation: Person, Place, Time and Situation Current Interventions: IV's Observation: Pt has bruising on her head, Bilateral arms, Right shoulder, Left hand Interventions ROM Right Upper Extremity AROM: WFL's Left Upper Extremity AROM: Slight limitation Comments: ROSAE has impaired coordination especially the hand. Strength Right Upper Extremity: Mild Weakness Left Upper Extremity: Mild Weakness Sensation Right Upper Extremity: Intact/Normal Left Upper Extremity: Impaired Comments:: Left hand has numbness Balance Sitting Balance Static Sitting Balance: Good Dynamic Sitting Balance: Good Standing Balance Static Standing Balance: Poor Dynamic Standing Balance: Poor ADL Skills Self Feeding Self Feeding: Independent Grooming Grooming: Min Assist Grooming Set-up: Sitting Bathing Bathing UE: Independent and Verbal Cues Bathing LE: Supervision and Verbal Cues Bathing Set-up: Shower Dressing Dressing UE: Independent Dressing LE: Independent Toilet Management Toilet Hygiene: Independent and Verbal Cues Toilet Clothing Management: Min Assist Functional Mobility Bed Mobility Rolling R/L: Independent Supine to Sit: CGA Transfers Sit to Stand: CGA, 1 person assist, Verbal Cues and Tactile Cues Stand to Sit: CGA, 1 person assist, Verbal Cues and Tactile Cues Stand Pivot Transfers: Min Assist, 1 person assist, Verbal Cues and Tactile Cues Ambulation Weight Bearing Status: FWB Assistive Device Used: Rolling Walker Assistance needed with Ambulation: Min Assist, 1 person assist, Verbal Cues and Tactile Cues Safety Awareness Safety Awareness: Fair ERIN INDEX SCORE: . Additional Treatment Performed Time with patient Length of Evaluation: 18 Total treatment time: 20 Activities Do you enjoy playing games?: Yes Would you be interested in leaving your room for activities?: Yes Would you enjoy group activities?: Yes Do you have difficulty with your vision?: Yes Patient Interests:: Watching Television and Visiting/Socializing Patient Education Patient Education: Education of diagnosis, Body/Joint mechanics, Home Safety and Education of Plan of Care Teaching Recipient: Patient Teaching Methods: Discussion and Demonstration Assessment Problem List:: Decreased level of function, Requires training/education, Decreased safety/Risk of falls, Weakness and Pain limits previous level of function Rehab Potential: Good Further Therapy Indicated?: Yes Evaluation Complexity: HISTORY: Medium, EXAM OF BODY SYSTEMS: Medium and CLINICAL DECISION MAKING: Medium Patient's Goal(s): To be able to go to SNF where her is located. Short Term Goals Goals GOAL 1: Pt to increase BUE strength to 4+/5 to increase independence of ADLS. Goal to be met by: 08/05/22 Progress towards goal: Progressing GOAL 2: Pt to increase dyn. stand. balance to Fair+. Goal to be met by: 08/05/22 Progress towards goal: Progressing GOAL 3: Pt to increase activity tolerance to 10 minutes. Goal to be met by: 08/05/22 Progress towards goal: Progressing GOAL 4: Pt to be CGA for toilet management of clothing. Goal to be met by: 08/05/22 Half-Way Goals GOAL 1: Pt to be independent with toileting. Goal to be met by: 08/06/22 Progress towards goal: Progressing GOAL 2: Pt to increase dyn. stand. balance to Fair+. Goal to be met by: 08/06/22 Progress towards goal: Progressing GOAL 3: Pt to increase activity tolerance to 15 minutes. Goal to be met by: 08/06/22 Progress towards goal: Progressing Plan Plan of Care: Therapeutic EX, Neuromuscular Re-Educ, Therapeutic Activity and Self-Care/Home Management Frequency of Treatment: 1-2 X day, as tolerated Duration of Treatment: 1 Week Anticipated Discharge Destination: [facility] Treatment Diagnosis (ICD 10 Codes): Weakness R53.1, Need for assistance with personal care Z74.1 Has the Physician been added for Co-signature?: Yes
--- NOTE | 2022-08-01 15:24 | RS.PTINEVL ---
Subjective Patient information Date of Evaluation: 08/01/22 Date of Arrival on Unit: 07/31/22 Admitted From:: Home (was staying with daughter since her went to [facility]) Diagnosis: weakness, dehydration, muliple falls Usual Living Arrangement: With Others Living Arrangement Comments: staying with daughter while is at [facility]. Home Environment: House, Stairs (few) and Rail Medical History: CVA/TIA, COPD and Arthritis Medical History Comments:: seizure disorder, CKD, ataxia, anemia Medications: see chart Subjective Information/ Patient Comments:: pt states that she is hoping to go to the [facility] where her is currently. Level of function Prior to this admission, the patient could do the following:: Independent Selfcare, Independent Ambulation, Perform Head Concierge/Cooking and Participated in Social Activities Outside home Abilities prior to this admission: pt has suffered multiple falls Current Level of Function: Partially Dependent Current Equipment Used at Home: rolling walker, cane Pain Assessement Location Left Shoulder: Description: Aching Pain Behavior: Rubbing Site and Facial Grimacing Interventions Objective Patient Orientation: Person and Place Current Interventions: IV's Observation: multiple areas of bruising, L side of face, R scapula, bottom, L hand Range of Motion ROM Right Upper Extremity AROM: Slight limitation (L shld) Left Upper Extremity AROM: WFL's Right Lower Extremity AROM: WFL's Left Lower Extremity AROM: WFL's Muscle Strength Muscle Strength Right Upper Extremity: Mild Weakness (grossly 4-/5) Left Upper Extremity: Mild Weakness (grossly 4-/5) Right Lower Extremity: Mild Weakness (hip flex 4-/5, knee flex/ext 4/5, ankle DF/PF 4/5) Left Lower Extremity: Mild Weakness (hip flex 4-/5, knee flex/ext 4/5, ankle DF/PF 4/5) Sensation Sensation Right Upper Extremity: Intact/Normal Left Upper Extremity: Impaired (L hand ) Right Lower Extremity: Intact/Normal Left Lower Extremity: Intact/Normal Palpation Palpation Findings: Tenderness (L hand) Balance Sitting Balance and Reactions Static Sitting Balance: Good Dynamic Sitting Balance: Good Standing Balance and Reactions Static Standing Balance: Poor Dynamic Standing Balance: Poor Standing Equilibrium Reactions: Delayed Left and Delayed Right Standing Protective Reactions: Delayed Left and Delayed Right Functional Mobility Bed Mobility Supine to Sit: CGA Transfers Sit to Stand: CGA Stand to Sit: CGA Safety Awareness Safety Awareness: Fair ERIN INDEX SCORE: n/a Ambulation Ambulation Assistive Device Used: Rolling Walker Orthotic/Prosthetic Device: No Distance: 110ft Assistance needed with Ambulation: CGA Quality of Ambulation: pt with increased lat sway. 2-3 episodes of LOB required CGA to min to prevent falls. Gait Deviations: Forward posture, Short stride and Deviates from path Factors Affecting Ambulation: Decreased Balance, Weakness, Decreased Coordination, Decreased Safety, Cognitive Status and Limited Endurance Treatment time Time with patient Length of Evaluation: 19 Total treatment time: 31 Patient Education Education Patient Education: Activity Modification and Education of Plan of Care Teaching Recipient: Patient Teaching Methods: Discussion and Demonstration Assessment Assessment Problem List:: Decreased level of function, Requires training/education, Decreased safety/Risk of falls, Weakness and Cognitive status limits abilities Rehab Potential: Good Further Therapy Indicated?: Yes Candidate for Swing Bed for Therapy Services?: Feel pt is not a candidate for swing bed due to plan is to go to [facility]. Evaluation Complexity: HISTORY: Medium, EXAM OF BODY SYSTEMS: Medium, CLINICAL PRESENTATION: Medium and CLINICAL DECISION MAKING: Medium Patient's Goal(s): walk better and stop falling Short Term Goals GOAL #1: pt demonstrate independence with rolling and scooting in bed Goal to be met by: 08/03/22 GOAL #2: pt transfer sup to/from sit to/from stand CGA x 1 Goal to be met by: 08/03/22 GOAL #3: pt amb with rwx CGA 140ft with no LOB Goal to be met by: 08/03/22 GOAL #4: Improve BLE strength to 4/5 Goal to be met by: 08/03/22 Tune Up Mechanic Goals GOAL #1: Transfer sup to/from sit independently, sit to/from stand SBA Goal to be met by: 08/05/22 GOAL #2: pt amb functional household distances with SBA with RWX Goal to be met by: 08/05/22 GOAL #3: pt with improved dyn stand balance to fair Goal to be met by: 08/05/22 Plan Plan of Care: Therapeutic EX and Therapeutic Activity Other:: gait training Frequency of Treatment: 1-2 X day, as tolerated Duration of Treatment: 5 days Anticipated Discharge Destination: Home Treatment Diagnosis (ICD 10 Codes): impaired balance R 26.81 difficulty walking R 26.2 weakness M62.81 Has the Physician been added for Co-signature?: Yes
[2022-08-01] MEDS: ATIVAN PO SCH (20:08)
[2022-08-01] MEDS: LIPITOR PO SCH (20:08)
[2022-08-01] MEDS: PHENOBARBITAL PO SCH (20:08)
[2022-08-01] MEDS ORDERED: FLEXERIL PO SCH (21:00)
[2022-08-02 05:07] LABS: BASOPHILS % (AUTO) 0.5 % (0.0-3.0); EOSINOPHILS # (AUTO) 1.7 K/ul (0.0-0.7); EOSINOPHILS % (AUTO) 25.2 % (0.0-7.0); HEMATOCRIT 31.6 % (37.0-47.0); HEMOGLOBIN 10.3 g/dl (12.0-16.0); IMMATURE GRANULOCYTE % (AUTO) 0.3 % (0.0-5.0); LYMPHOCYTES # (AUTO) 1.3 K/uL (0.60-3.4); LYMPHOCYTES % (AUTO) 20.4 (10.0-50.0); MEAN CORPUSCULAR HEMOGLOBIN 32.5 pg (27.0-31.0); MEAN CORPUSCULAR HGB CONC 32.6 (31.8-35.4); MEAN CORPUSCULAR VOLUME 99.7 fl (81.0-99.0); MONOCYTES # (AUTO) 0.5 K/uL (0.4-2.0); MONOCYTES % (AUTO) 6.8 (0-10); NEUTROPHILS # (AUTO) 3.1 K/ul (2.0-6.9); NEUTROPHILS % (AUTO) 46.8 % (42.2-75.2); PLATELET COUNT 166 10^3/uL (140-440); RDW COEFFICIENT OF VARIATION 13.3 % (11.6-14.8); RED BLOOD COUNT 3.17 10^6/ul (4.20-5.40); WHITE BLOOD COUNT 6.58 K/ul (4.6-10.2)
[2022-08-02 05:19] LABS: ALANINE AMINOTRANSFERASE 19.6 U/L (0-35); ALBUMIN 3.54 g/dL (3.5-5.0); ALKALINE PHOSPHATASE 154.5 U/L (53-141); ASPARTATE AMINO TRANSFERASE 25.7 U/L (14-36); BILIRUBIN,TOTAL 0.31 mg/dL (0.2-1.3); BLOOD UREA NITROGEN 23.7 mg/dL (7-17); CALCIUM 8.78 mg/dL (8.4-10.2); CARBON DIOXIDE 28.1 mmol/L (22-30.0); CHLORIDE 111.3 mmol/L (98-107); CREATININE 1.1 mg/dL (0.60-1.30); GLUCOSE 111.5 mg/dL (74-106); POTASSIUM 3.89 mmol/L (3.5-5.1); SODIUM 141.4 mmol/L (134.5-145); TOTAL PROTEIN 6.12 g/dL (6.3-8.2)
[2022-08-02] MEDS: PRILOSEC PO SCH (06:06)
[2022-08-02] MEDS: SODIUM CHLORIDE 1,000 ML IV SCH (06:15)
[2022-08-02] MEDS: MYRBETRIQ PO SCH (08:11)
[2022-08-02] MEDS: ANORO ELLIPTA 62.5-25 MCG INH IH SCH (08:13)
[2022-08-02] MEDS: COLACE PO SCH (08:13)
[2022-08-02] MEDS: DYAZIDE PO SCH (08:14)
[2022-08-02] MEDS: REQUIP PO SCH (08:14)
[2022-08-02] MEDS: CLARITIN PO SCH (08:15)
[2022-08-02] MEDS: LEXAPRO PO SCH (08:15)
[2022-08-02] MEDS: ELIQUIS PO SCH (08:16)
[2022-08-02 10:08] VITALS: BP 123/71; TEMP 96.4
[2022-08-02] MEDS ORDERED: VITAMIN B-12 IM ONE (11:46)
--- NOTE | 2022-08-04 17:14 | PN ---
DATE OF SERVICE: 08/01/22 SUBJECTIVE: 82 year old white female hospitalized with dehydration. Patient's overall condition seems to be deteriorating. According to the daughter she has been falling lately. Patient has a history of multiple strokes. [facility] and patient is living by herself with the help of daughter. Her daughter is unable to take care of her, so patient's daughter wants her to be in the jail. REVIEW OF SYSTEMS: CONSTITUTIONAL: No night sweats. No fatigue, malaise, lethargy. No fever or chills. HEENT: Eyes: No visual changes. No eye pain. No eye discharge. ENT: No runny nose. No epistaxis. No sinus pain. No sore throat. No odynophagia. No congestion. RESPIRATORY: No cough, no congestion. No hemoptysis. No shortness of breath. CARDIOVASCULAR: No chest pain. No palpitations. No PND. No orthopnea. GASTROINTESTINAL: No abdominal pain. No nausea or vomiting. No diarrhea or constipation. No hematemesis. No hematochezia. GENITOURINARY: No urgency. No frequency. No dysuria. No hematuria. No obstructive symptoms. No discharge. No pain. No significant abnormal bleeding. MUSCULOSKELETAL: No musculoskeletal pain; no joint swelling. NEUROLOGICAL: No headache. No neck pain. No syncope. No seizures. No dizziness. PSYCHIATRIC: Not anxious. No depression. No suicidal thoughts. No homicidal thoughts. SKIN: No rash. No lesions. No wounds. ENDOCRINE: No unexplained weight loss. No weight gain. HEMATOLOGIC/LYMPHATIC: No anemia. No purpura. No petechiae. No prolonged or excessive bleeding. No palpable lymph nodes. PHYSICAL EXAMINATION: GENERAL: The patient is in no distress. VITAL SIGNS: Temp 97.4, pulse 73, respiratory rate 19, blood pressure 132/75, pulse ox 93% HEENT: Head normocephalic, atraumatic. Eyes: Extraocular muscles are intact. Pupils are equal, round and reactive to light and accommodation. Ears: No lesions. Nose appeared normal. Throat: No exudate or erythema. NECK: Supple. LUNGS: Decreased breath sounds but clear. HEART: S1, S2, no S3. No murmurs. No cyanosis or clubbing. No ascites. Pulses: Dorsalis pedis and posterior tibial pulses +1 to +2 bilaterally. ABDOMEN: Soft. Bowel sounds active. EXTREMITIES: Moving all extremities. NEUROLOGIC: No focal deficit. Cranial nerves II through XII are grossly intact. No headache. No double vision. SKIN: Not dry. Intact. Turgor - normal. LYMPHATIC: No palpable lymph nodes/no lymphedema. MUSCULOSKELETAL: Normal joints with no swelling. Muscle tone is normal. LABS: Hemoglobin 10.3, hematocrit 31, WBC 6,000, normal differential, creatinine 1.3, BUN 33, potassium 4.3 ASSESSMENT: 1. Dehydration 2. Generalized weakness with multifactorial 3. Status post strokes with dementia 4. Chronic kidney disease 5. Hypertension 6. Chronic anemia PLAN: 1. Continue all the medications 2. Continue IV fluids Patient complained of neck pain which kept her awake, so we gave her Flexeril 5 mg PO at night. Condition: Stable TIME SPENT: More than 35 minutes. Plan and coordination of the patient's care discussed in the presence of nurse. NALLELY
--- NOTE | 2022-08-04 17:18 | PN ---
DATE OF SERVICE: 07/31/22 SUBJECTIVE: Patient was seen and examined with the nurse practitioner. Patient's condition is stable. She was seen in the office with nurse practitioner. The orders were carried out. The patient's is in the [facility] and daughter is thinking about putting her in the [facility]. She is unable to take care of the patient. The patient is very wobbly and has history of fall. REVIEW OF SYSTEMS: CONSTITUTIONAL: No night sweats. No fatigue, malaise, lethargy. No fever or chills. HEENT: Eyes: No visual changes. No eye pain. No eye discharge. ENT: No runny nose. No epistaxis. No sinus pain. No sore throat. No odynophagia. No congestion. RESPIRATORY: No cough, no congestion. No hemoptysis. No shortness of breath. CARDIOVASCULAR: No angina symptoms. No CHF symptoms. No atypical chest pain for CAD. No palpitations. No PND. No orthopnea. GASTROINTESTINAL: No abdominal pain. No nausea or vomiting. No diarrhea or constipation. No hematemesis. No hematochezia. GENITOURINARY: No urgency. No frequency. No dysuria. No hematuria. No obstructive symptoms. No discharge. No pain. No significant abnormal bleeding. MUSCULOSKELETAL: No musculoskeletal pain; no joint swelling. NEUROLOGICAL: No headache. No neck pain. No syncope. No seizures. No dizziness. PSYCHIATRIC: Not anxious. No depression. No suicidal thoughts. No homicidal thoughts. SKIN: No rash. No lesions. No wounds. ENDOCRINE: No unexplained weight loss. No weight gain. HEMATOLOGIC/LYMPHATIC: No anemia. No purpura. No petechiae. No prolonged or excessive bleeding. No palpable lymph nodes. PHYSICAL EXAMINATION: GENERAL: The patient is in no distress. HEENT: Head normocephalic, atraumatic. Eyes: Extraocular muscles are intact. Pupils are equal, round and reactive to light and accommodation. Ears: No lesions. Nose appeared normal. Throat: No exudate or erythema. NECK: Supple. No JVD, no carotid bruit. No lymphadenopathy or thyromegaly. LUNGS: Clear to auscultation. Percussion note normal. Chest symmetrical. HEART: S1, S2, no S3. No murmurs. No cyanosis or clubbing. No ascites. Pulses: Dorsalis pedis and posterior tibial pulses +1 to +2 bilaterally. ABDOMEN: Soft. Nontender. Bowel sounds active. No CVA tenderness. No mass felt. EXTREMITIES: No edema. Full range of motion of all extremities, equal. NEUROLOGIC: No focal deficit. Cranial nerves II through XII are grossly intact. No headache. No double vision. SKIN: Not dry. Intact. Turgor - normal. LYMPHATIC: No palpable lymph nodes/no lymphedema. MUSCULOSKELETAL: Normal joints with no swelling. Muscle tone is normal. TIME SPENT: More than 35 minutes. Plan and coordination of the patient's care discussed in the presence of nurse. NALLELY
--- NOTE | 2022-08-04 17:23 | PN ---
DATE OF SERVICE: 08/02/22 SUBJECTIVE: 82 year old white female hospitalized with mild dehydration and generalized weakness. Patient walked 150 feet today with help. She is a lot stronger. Her hydration status has improved. Creatinine and BUN is better. Her appetite has improved. REVIEW OF SYSTEMS: CONSTITUTIONAL: No night sweats. No fatigue, malaise, lethargy. No fever or chills. HEENT: Eyes: No visual changes. No eye pain. No eye discharge. ENT: No runny nose. No epistaxis. No sinus pain. No sore throat. No odynophagia. No congestion. RESPIRATORY: No cough, no congestion. No hemoptysis. No shortness of breath. CARDIOVASCULAR: No angina symptoms. No CHF symptoms. No atypical chest pain for CAD. No palpitations. No PND. No orthopnea. GASTROINTESTINAL: No abdominal pain. No nausea or vomiting. No diarrhea or constipation. No hematemesis. No hematochezia. GENITOURINARY: No urgency. No frequency. No dysuria. No hematuria. No obstructive symptoms. No discharge. No pain. No significant abnormal bleeding. MUSCULOSKELETAL: No musculoskeletal pain; no joint swelling. NEUROLOGICAL: No headache. No neck pain. No syncope. No seizures. No dizziness. PSYCHIATRIC: Not anxious. No depression. No suicidal thoughts. No homicidal thoughts. SKIN: No rash. No lesions. No wounds. ENDOCRINE: No unexplained weight loss. No weight gain. HEMATOLOGIC/LYMPHATIC: No anemia. No purpura. No petechiae. No prolonged or excessive bleeding. No palpable lymph nodes. PHYSICAL EXAMINATION: GENERAL: The patient is in no distress. Her sister is in the room. She is oriented to time, place and person. VITAL SIGNS: Temp 98.1, pulse 70, respiratory rate 18, blood pressure 128/50, pulse ox 97% HEENT: Head normocephalic, atraumatic. Eyes: Extraocular muscles are intact. Pupils are equal, round and reactive to light and accommodation. Ears: No lesions. Nose appeared normal. Throat: No exudate or erythema. NECK: Supple. LUNGS: Decreased breath sounds but clear. HEART: S1, S2, no S3. No murmurs. No cyanosis or clubbing. No ascites. Pulses: Dorsalis pedis and posterior tibial pulses +1 to +2 bilaterally. ABDOMEN: Soft. EXTREMITIES: No edema. Full range of motion of all extremities, equal. NEUROLOGIC: No focal deficit. Cranial nerves II through XII are grossly intact. No headache. No double vision. SKIN: Not dry. Intact. Turgor - normal. LYMPHATIC: No palpable lymph nodes/no lymphedema. MUSCULOSKELETAL: Normal joints with no swelling. Muscle tone is normal. PLAN: Discharge patient home on observation. Patient is to go to the assisted in a couple of days. I already had a talk with Cathy, the daughter, yesterday. She will get 1 cc of B12 shot before discharge. Patient is to see me in 7-10 days if she doesn't go to the assisted. Condition at time of discharge: Stable TIME SPENT: More than 35 minutes. Plan and coordination of the patient's care discussed in the presence of nurse. NALLELY
--- NOTE | 2022-08-04 17:37 | DS ---
DATE OF SERVICE: 08/02/22 FINAL DIAGNOSIS: GENERALIZED WEAKNESS DEHYDRATION RECURRENT FALLS [place]AX[place] ANEMIA SEIZURE DISORDER CHRONIC KIDNEY DISEASE CVA COPD MEDICATIONS AT DISCHARGE: Patient advised to continue same medication as before, no change. Phenobarbital Tiotropium DuoNeb nebulizer Dyazide Atorvastatin Xyzal Lorazepam Pantoprazole Apixaban Lexapro LABS: Hemoglobin 10.3, hematocrit 31, WBC 6,500, normal differential, creatinine 1.1, BUN 23, potassium 3.8 HOSPITAL COURSE: 82 year old white female hospitalized on 07/31/22 under observation. Patient was dehydrated and had frequent falls at home. The daughter got concerned and brought her down as her is already in the group home. The daughter is unable to take care of her. Patient will be to the group home. Patient's insurance doesn't allow that to happen because patient was not accepted as a regular admission. In any case, patient's appetite improved. Her hydration status improved. She was much better. She is to be discharged home in stable condition. Later on, she is to be admitted to the group home. TIME SPENT: 70 minutes NALLELY
--- NOTE | 2022-08-04 17:39 | PN ---
07/31/22 LEVEL 5 08/01/22 INTERMEDIATE 08/02/22 DISCHARGE [facility]TDD
== END 2022-08-02 12:45 | disposition home or self-care (01) ==
LOC: LAB 14:53 → MEDSURG A 16:16 → INTOOBSV 16:16
PROVIDERS: ADMIT Internal Medicine; ATTEND Internal Medicine
DX: Z86.73 Personal history of transient ischemic attack (TIA), and cerebral infarction without residual deficits; Z20.822 Contact with and (suspected) exposure to COVID-19; I12.9 Hypertensive chronic kidney disease with stage 1 through stage 4 chronic kidney disease, or unspecified chronic kidney disease; J44.9 Chronic obstructive pulmonary disease, unspecified; R27.0 Ataxia, unspecified; F03.90 Unspecified dementia, unspecified severity, without behavioral disturbance, psychotic disturbance, mood disturbance, and anxiety; Z79.899 Other long term (current) drug therapy; S00.83XA Contusion of other part of head, initial encounter; E86.0 Dehydration; R29.6 Repeated falls; N18.9 Chronic kidney disease, unspecified; I63.9 Cerebral infarction, unspecified; D63.1 Anemia in chronic kidney disease; Z91.81 History of falling; R56.9 Unspecified convulsions; R53.1 Weakness; Z51.81 Encounter for therapeutic drug level monitoring